=== PATIENT | male | born 1965 | race Caucasian/White ===

== ENCOUNTER 2022-08-17 17:11 | Emergency (ER) | payer OTHER ==
[2022-08-17 17:50] VITALS: BP 144/88; PULSE 97; RESP 18; TEMP 98.2; BMI 26.6
[2022-08-17] MEDS ORDERED: LIDOCAINE 5% TOPICAL PATCH TP ONE (18:36)
[2022-08-17] MEDS ORDERED: METHOCARBAMOL 500 MG TABLET PO ONE (18:36)
[2022-08-17] MEDS ORDERED: METHOCARBAMOL 500 MG TABLET ONE (19:36)
[2022-08-17] MEDS ORDERED: LIDOCAINE 5% TOPICAL PATCH ONE (19:36)
[2022-08-17] MEDS ORDERED: LIDOCAINE PATCH REMOVAL MC ONE (22:00)
== END 2022-08-17 21:26 | disposition home or self-care (01) ==
LOC: JERFT 17:11 → JER 17:11 → JERFT 21:26
DX: M54.50 Low back pain, unspecified (principal); M54.6 Pain in thoracic spine; W01.198A Fall on same level from slipping, tripping and stumbling with subsequent striking against other object, initial encounter
CPT/HCPCS: 72070-TC-FY; 72100-TC-FY; 99283-25

== ENCOUNTER 2022-08-28 20:07 | Inpatient (IN) | payer OTHER ==
[2022-08-28] MEDS ORDERED: KETOROLAC TROMETHAMINE 30 MG/1 ML VIAL IM ONE (22:09)
[2022-08-28] MEDS ORDERED: METHOCARBAMOL 500 MG TABLET PO ONE (22:09)
[2022-08-28] MEDS ORDERED: LIDOCAINE 5% TOPICAL PATCH TP ONE (22:09)
[2022-08-28] MEDS ORDERED: LIDOCAINE 5% TOPICAL PATCH ONE (22:16)
[2022-08-28] MEDS ORDERED: KETOROLAC TROMETHAMINE 30 MG/1 ML VIAL ONE (22:17)
[2022-08-28] MEDS ORDERED: METHOCARBAMOL 500 MG TABLET ONE (22:17)
[2022-08-28] MEDS ORDERED: traMADol HCL 50 MG TABLET PO ONE (22:27)
[2022-08-28] MEDS ORDERED: traMADol HCL 50 MG TABLET ONE (22:29)
[2022-08-28 22:47] LABS: URINE APPEARANCE CLEAR; URINE BILIRUBIN NEGATIVE (NEGATIVE); URINE COLOR YELLOW; URINE GLUCOSE (UA) 3+ (NEGATIVE); URINE KETONE NEGATIVE (NEGATIVE); URINE LEUK ESTERASE NEGATIVE (NEGATIVE); URINE NITRITE NEGATIVE (NEGATIVE); URINE PROTEIN TRACE (NEGATIVE)
[2022-08-28] MEDS ORDERED: SODIUM CHLORIDE 0.9% 1000 ML INFUS.BAG IV ONE (23:08)
[2022-08-28 23:30] LABS: BASO % 0.6 % (0-2.0); EOS % 2.2 % (0-4.5); HEMATOCRIT 33.1 % (35.4-49); HEMOGLOBIN 11.2 GM/dL (11.7-16.9); LYMPH % 31.4 % (8-40); MCH 32.7 pg (25.7-33.7); MCHC 33.8 g/dl (32.0-35.9); MEAN CELL VOLUME 96.7 fl (80-96); MEAN PLT VOLUME 7.9 fl (7.5-11.1); MONO % 8.8 % (3.8-10.2); PLATELET COUNT 304 10^3/uL (134-434); RBC 3.42 M/mm3 (4.00-5.60); RDW 11.8 % (11.9-15.9); WHITE BLOOD COUNT 6.3 K/mm3 (4.0-10.0)
[2022-08-28 23:42] LABS: POTASSIUM 4.3 mmol/L (3.5-5.1)
[2022-08-28 23:45] LABS: CALCIUM 8.8 mg/dL (8.5-10.1)
[2022-08-28 23:46] LABS: BLOOD UREA NITROGEN 24.6 mg/dL (7-18)
[2022-08-28 23:49] LABS: CREATININE 0.6 mg/dL (0.55-1.3)
[2022-08-28 23:50] LABS: BILIRUBIN,TOTAL 0.6 mg/dL (0.2-1); TOT PROT 7.1 g/dl (6.4-8.2)
[2022-08-29] MEDS ORDERED: KETOROLAC TROMETHAMINE 30 MG/1 ML VIAL IM PRN ×2 (02:55→03:17)
[2022-08-29] MEDS ORDERED: ACETAMINOPHEN 1000 MG/100 ML BAG IVPB PRN (02:55)
[2022-08-29] MEDS ORDERED: ACETAMINOPHEN 325 MG TABLET (FP) ONE (05:45)
[2022-08-29] MEDS: ACETAMINOPHEN 500 MG TABLET (FP) PO SCH ×3 (05:50→21:51)
[2022-08-29] MEDS: SODIUM CHLORIDE 1,000 ML IV SCH ×2 (05:50→19:06)
[2022-08-29] MEDS ORDERED: ACETAMINOPHEN 1000 MG/100 ML BAG IVPB SCH (06:00)
[2022-08-29] MEDS: LIDOCAINE PATCH REMOVAL MC SCH ×2 (07:19→21:52)
[2022-08-29] MEDS: INSULIN SLIDING SCALE (NOVOLOG) 1 VIAL SQ SCH ×4 (07:23→21:51)
[2022-08-29 08:18] LABS: HEMATOCRIT 33.7 % (35.4-49); HEMOGLOBIN 11.6 GM/dL (11.7-16.9); MCH 33.3 pg (25.7-33.7); MCHC 34.6 g/dl (32.0-35.9); MEAN CELL VOLUME 96.3 fl (80-96); MEAN PLT VOLUME 8.4 fl (7.5-11.1); PLATELET COUNT 291 10^3/uL (134-434); RBC 3.49 M/mm3 (4.00-5.60); RDW 11.7 % (11.9-15.9); WHITE BLOOD COUNT 5.9 K/mm3 (4.0-10.0)
[2022-08-29 08:48] LABS: ALBUMIN 2.9 g/dl (3.4-5.0)
[2022-08-29 08:49] LABS: CALCIUM 8.6 mg/dL (8.5-10.1)
[2022-08-29 08:50] LABS: BLOOD UREA NITROGEN 16.1 mg/dL (7-18)
[2022-08-29 08:51] LABS: PHOSPHOROUS 2.4 mg/dL (2.5-4.9)
[2022-08-29 08:52] LABS: CREATININE 0.4 mg/dL (0.55-1.3)
[2022-08-29 08:53] LABS: BILIRUBIN,TOTAL 0.4 mg/dL (0.2-1); TOT PROT 6.9 g/dl (6.4-8.2)
[2022-08-29] MEDS: ENOXAPARIN NA (PORCINE) 40 MG/0.4 ML DISP.SYRIN SQ SCH (09:16)
[2022-08-29] MEDS ORDERED: INSULIN (NOVOLOG) ASPART 100 UNITS/ML 10ML VIAL ONE ×2 (12:39→21:46)
[2022-08-29] MEDS ORDERED: DOCUSATE SODIUM 100 MG CAPSULE (FP) PO PRN (16:24)
[2022-08-29 19:45] VITALS: BMI 23.8
[2022-08-29] MEDS ORDERED: INSULIN (LEVEMIR) 100 UNITS/ML UNITS SQ SCH ×2 (22:00)
[2022-08-30] MEDS: SODIUM CHLORIDE 1,000 ML IV SCH ×2 (01:31→06:17)
[2022-08-30] MEDS: ACETAMINOPHEN 500 MG TABLET (FP) PO SCH (06:09)
[2022-08-30] MEDS: INSULIN SLIDING SCALE (NOVOLOG) 1 VIAL SQ SCH ×4 (06:17→21:55)
[2022-08-30] MEDS: INSULIN (LEVEMIR) 100 UNITS/ML UNITS SQ SCH (07:07)
[2022-08-30] MEDS: metFORMIN HCL 500 MG TABLET (FP) PO SCH ×2 (07:07→17:03)
[2022-08-30 08:09] LABS: BASO % 0.5 % (0-2.0); EOS % 1.6 % (0-4.5); HEMATOCRIT 34.7 % (35.4-49); HEMOGLOBIN 12.2 GM/dL (11.7-16.9); LYMPH % 24.3 % (8-40); MCH 33.6 pg (25.7-33.7); MCHC 35.2 g/dl (32.0-35.9); MEAN CELL VOLUME 95.6 fl (80-96); MEAN PLT VOLUME 7.9 fl (7.5-11.1); MONO % 8.9 % (3.8-10.2); NEUT % 64.7 % (42.8-82.8); PLATELET COUNT 336 10^3/uL (134-434); RBC 3.63 M/mm3 (4.00-5.60); RDW 11.6 % (11.9-15.9); WHITE BLOOD COUNT 6.8 K/mm3 (4.0-10.0)
[2022-08-30 08:20] LABS: POTASSIUM 4.2 mmol/L (3.5-5.1)
[2022-08-30 08:28] LABS: CALCIUM 8.5 mg/dL (8.5-10.1)
[2022-08-30 08:29] LABS: ALBUMIN 2.9 g/dl (3.4-5.0); BLOOD UREA NITROGEN 10.6 mg/dL (7-18); MAGNESIUM 2.2 mg/dL (1.8-2.4)
[2022-08-30 08:30] LABS: TOT PROT 7.2 g/dl (6.4-8.2)
[2022-08-30 08:32] LABS: CREATININE 0.5 mg/dL (0.55-1.3)
[2022-08-30 08:33] LABS: BILIRUBIN,TOTAL 0.4 mg/dL (0.2-1)
[2022-08-30] MEDS: ENOXAPARIN NA (PORCINE) 40 MG/0.4 ML DISP.SYRIN SQ SCH (09:21)
[2022-08-30] MEDS ORDERED: INSULIN (NOVOLOG) ASPART 100 UNITS/ML 10ML VIAL ONE (11:45)
[2022-08-30] MEDS: LIDOCAINE 5% TOPICAL PATCH TP SCH (13:01)
[2022-08-30] MEDS: KETOROLAC TROMETHAMINE 30 MG/1 ML VIAL IM PRN ×2 (14:51→21:54)
[2022-08-30 17:06] LABS: PH,URINE 7.5 (5.0-8.0); URINE APPEARANCE CLEAR; URINE BILIRUBIN NEGATIVE (NEGATIVE); URINE COLOR YELLOW; URINE GLUCOSE (UA) 2+ (NEGATIVE); URINE KETONE NEGATIVE (NEGATIVE); URINE LEUK ESTERASE NEGATIVE (NEGATIVE); URINE NITRITE NEGATIVE (NEGATIVE); URINE PROTEIN NEGATIVE (NEGATIVE)
[2022-08-30] MEDS ORDERED: INSULIN (LEVEMIR) 100 UNITS/ML UNITS SQ SCH (22:00)
[2022-08-30] MEDS: LIDOCAINE PATCH REMOVAL MC SCH ×2 (22:01→22:02)
[2022-08-31] MEDS: INSULIN (LEVEMIR) 100 UNITS/ML UNITS SQ SCH ×2 (06:41→09:49)
[2022-08-31] MEDS: INSULIN SLIDING SCALE (NOVOLOG) 1 VIAL SQ SCH ×4 (06:41→21:34)
[2022-08-31] MEDS: metFORMIN HCL 500 MG TABLET (FP) PO SCH ×4 (06:41→17:28)
[2022-08-31] MEDS: SODIUM CHLORIDE 1,000 ML IV SCH (07:23)
[2022-08-31 09:07] LABS: BASO % 0.5 % (0-2.0); EOS % 1.8 % (0-4.5); HEMATOCRIT 33.9 % (35.4-49); HEMOGLOBIN 11.7 GM/dL (11.7-16.9); LYMPH % 26.8 % (8-40); MCHC 34.5 g/dl (32.0-35.9); MEAN CELL VOLUME 95.6 fl (80-96); MEAN PLT VOLUME 8.2 fl (7.5-11.1); MONO % 7.9 % (3.8-10.2); PLATELET COUNT 320 10^3/uL (134-434); RBC 3.55 M/mm3 (4.00-5.60); RDW 11.8 % (11.9-15.9); WHITE BLOOD COUNT 5.4 K/mm3 (4.0-10.0)
[2022-08-31 09:17] LABS: POTASSIUM 4.3 mmol/L (3.5-5.1)
[2022-08-31 09:23] LABS: CALCIUM 8.7 mg/dL (8.5-10.1)
[2022-08-31 09:24] LABS: ALBUMIN 2.7 g/dl (3.4-5.0); BLOOD UREA NITROGEN 12.7 mg/dL (7-18); MAGNESIUM 2.3 mg/dL (1.8-2.4)
[2022-08-31 09:27] LABS: CREATININE 0.5 mg/dL (0.55-1.3)
[2022-08-31 09:28] LABS: BILIRUBIN,TOTAL 0.3 mg/dL (0.2-1); TOT PROT 6.9 g/dl (6.4-8.2)
[2022-08-31] MEDS: LIDOCAINE 5% TOPICAL PATCH TP SCH (09:48)
[2022-08-31] MEDS: TAMSULOSIN HCL 0.4 MG CAP PO SCH (09:48)
[2022-08-31] MEDS: ENOXAPARIN NA (PORCINE) 40 MG/0.4 ML DISP.SYRIN SQ SCH (09:51)
[2022-08-31] MEDS ORDERED: INSULIN (NOVOLOG) ASPART 100 UNITS/ML 10ML VIAL ONE (11:38)
[2022-08-31] MEDS: POLYETHYLENE GLYCOL (HEALTHYLAX) 3350 17 GM PACKET PO SCH (11:46)
[2022-08-31] MEDS ORDERED: KETOROLAC TROMETHAMINE 30 MG/1 ML VIAL IVPB PRN (14:40)
[2022-08-31] MEDS: LIDOCAINE PATCH REMOVAL MC SCH ×3 (21:35→21:38)
[2022-09-01] MEDS: AZITHROMYCIN IVPB 500 MG/250 ML BAG IVPB SCH (05:45)
[2022-09-01] MEDS: INSULIN SLIDING SCALE (NOVOLOG) 1 VIAL SQ SCH ×4 (06:08→21:26)
[2022-09-01] MEDS: metFORMIN HCL 500 MG TABLET (FP) PO SCH ×2 (06:08→16:41)
[2022-09-01] MEDS: INSULIN (LEVEMIR) 100 UNITS/ML UNITS SQ SCH (06:08)
[2022-09-01] MEDS: ENOXAPARIN NA (PORCINE) 40 MG/0.4 ML DISP.SYRIN SQ SCH (09:31)
[2022-09-01] MEDS: LIDOCAINE 5% TOPICAL PATCH TP SCH (09:31)
[2022-09-01] MEDS: TAMSULOSIN HCL 0.4 MG CAP PO SCH (09:31)
[2022-09-01 10:46] LABS: POTASSIUM 4.4 mmol/L (3.5-5.1)
[2022-09-01 10:48] LABS: CALCIUM 8.7 mg/dL (8.5-10.1)
[2022-09-01 10:49] LABS: ALBUMIN 2.8 g/dl (3.4-5.0); BLOOD UREA NITROGEN 12.4 mg/dL (7-18); MAGNESIUM 2.2 mg/dL (1.8-2.4)
[2022-09-01 10:52] LABS: CREATININE 0.5 mg/dL (0.55-1.3)
[2022-09-01 10:54] LABS: BILIRUBIN,TOTAL 0.3 mg/dL (0.2-1); TOT PROT 6.9 g/dl (6.4-8.2)
[2022-09-01 11:00] LABS: BASO % 0.6 % (0-2.0); EOS % 2.1 % (0-4.5); HEMATOCRIT 33.4 % (35.4-49); HEMOGLOBIN 11.5 GM/dL (11.7-16.9); LYMPH % 24.9 % (8-40); MCHC 34.4 g/dl (32.0-35.9); MEAN CELL VOLUME 95.8 fl (80-96); MEAN PLT VOLUME 8.4 fl (7.5-11.1); MONO % 7.8 % (3.8-10.2); NEUT % 64.6 % (42.8-82.8); PLATELET COUNT 333 10^3/uL (134-434); RBC 3.49 M/mm3 (4.00-5.60); RDW 11.9 % (11.9-15.9); WHITE BLOOD COUNT 5.9 K/mm3 (4.0-10.0)
[2022-09-01] MEDS: oxyCODONE HCL 5 MG TABLET PO PRN (13:54)
[2022-09-01] MEDS: POLYETHYLENE GLYCOL (HEALTHYLAX) 3350 17 GM PACKET PO SCH (14:09)
[2022-09-01] MEDS ORDERED: CEFTRIAXONE 1 GM in DEXTROSE 5%-WATER - 50 ML IVPB SCH (16:30)
[2022-09-01] MEDS ORDERED: AZITHROMYCIN IVPB 500 MG/250 ML BAG IVPB SCH (16:30)
[2022-09-01] MEDS: CEFTRIAXONE 1 GM in DEXTROSE 5%-WATER - 50 ML IVPB SCH (19:08)
[2022-09-01] MEDS: LIDOCAINE PATCH REMOVAL MC SCH ×2 (21:26)
[2022-09-02] MEDS: metFORMIN HCL 500 MG TABLET (FP) PO SCH ×2 (06:01→16:50)
[2022-09-02] MEDS: INSULIN (LEVEMIR) 100 UNITS/ML UNITS SQ SCH (06:01)
[2022-09-02] MEDS: INSULIN SLIDING SCALE (NOVOLOG) 1 VIAL SQ SCH ×4 (06:02→21:55)
[2022-09-02] MEDS: TAMSULOSIN HCL 0.4 MG CAP PO SCH ×2 (07:48→21:55)
[2022-09-02 08:15] LABS: BASO % 0.5 % (0-2.0); EOS % 2.2 % (0-4.5); HEMATOCRIT 33.3 % (35.4-49); HEMOGLOBIN 11.7 GM/dL (11.7-16.9); LYMPH % 34.1 % (8-40); MCH 33.4 pg (25.7-33.7); MCHC 35.2 g/dl (32.0-35.9); MEAN PLT VOLUME 8.2 fl (7.5-11.1); MONO % 9.5 % (3.8-10.2); NEUT % 53.7 % (42.8-82.8); PLATELET COUNT 335 10^3/uL (134-434); RBC 3.51 M/mm3 (4.00-5.60); RDW 11.6 % (11.9-15.9); WHITE BLOOD COUNT 5.8 K/mm3 (4.0-10.0)
[2022-09-02 08:29] LABS: POTASSIUM 4.6 mmol/L (3.5-5.1)
[2022-09-02 08:45] LABS: ALBUMIN 2.8 g/dl (3.4-5.0)
[2022-09-02 08:46] LABS: MAGNESIUM 2.1 mg/dL (1.8-2.4)
[2022-09-02 08:49] LABS: CREATININE 0.6 mg/dL (0.55-1.3)
[2022-09-02 08:50] LABS: BILIRUBIN,TOTAL 0.4 mg/dL (0.2-1); TOT PROT 7.4 g/dl (6.4-8.2)
[2022-09-02] MEDS: CEFTRIAXONE 1 GM in DEXTROSE 5%-WATER - 50 ML IVPB SCH (10:16)
[2022-09-02] MEDS: POLYETHYLENE GLYCOL (HEALTHYLAX) 3350 17 GM PACKET PO SCH (10:16)
[2022-09-02] MEDS: LIDOCAINE 5% TOPICAL PATCH TP SCH (10:16)
[2022-09-02] MEDS: ENOXAPARIN NA (PORCINE) 40 MG/0.4 ML DISP.SYRIN SQ SCH (10:16)
[2022-09-02] MEDS: AZITHROMYCIN IVPB 500 MG/250 ML BAG IVPB SCH (10:58)
[2022-09-02] MEDS ORDERED: INSULIN (NOVOLOG) ASPART 100 UNITS/ML 10ML VIAL ONE ×2 (11:27→16:52)
[2022-09-02 18:12] LABS: FREE KAPPA,SERUM 26.4 mg/L (3.3-19.4)
[2022-09-02] MEDS: oxyCODONE HCL 5 MG TABLET PO PRN (21:54)
[2022-09-02] MEDS: LIDOCAINE PATCH REMOVAL MC SCH ×2 (21:55)
[2022-09-03] MEDS: oxyCODONE HCL 5 MG TABLET PO PRN ×2 (06:14→17:16)
[2022-09-03] MEDS: INSULIN SLIDING SCALE (NOVOLOG) 1 VIAL SQ SCH ×4 (06:15→21:44)
[2022-09-03] MEDS: metFORMIN HCL 500 MG TABLET (FP) PO SCH ×2 (06:15→17:15)
[2022-09-03] MEDS: INSULIN (LEVEMIR) 100 UNITS/ML UNITS SQ SCH (06:15)
[2022-09-03] MEDS: CEFTRIAXONE 1 GM in DEXTROSE 5%-WATER - 50 ML IVPB SCH (10:00)
[2022-09-03] MEDS: TAMSULOSIN HCL 0.4 MG CAP PO SCH ×2 (10:00→21:41)
[2022-09-03] MEDS: LIDOCAINE 5% TOPICAL PATCH TP SCH ×2 (10:01→11:34)
[2022-09-03] MEDS: BICALUTAMIDE 50 MG TABLET (FP) PO SCH (10:01)
[2022-09-03] MEDS: POLYETHYLENE GLYCOL (HEALTHYLAX) 3350 17 GM PACKET PO SCH (10:01)
[2022-09-03] MEDS: AZITHROMYCIN IVPB 500 MG/250 ML BAG IVPB SCH (10:02)
[2022-09-03 11:27] LABS: INR 1.17 (0.83-1.09); PROTHROMBIN TIME (PATIENT) 13.5 SEC (9.7-13.0)
[2022-09-03] MEDS ORDERED: LIDOCAINE 5% TOPICAL PATCH TP SCH (11:30)
[2022-09-03] MEDS ORDERED: INSULIN (NOVOLOG) ASPART 100 UNITS/ML 10ML VIAL ONE (11:46)
[2022-09-03 15:07] LABS: IMMUNOGLOBULIN D < 1.30 mg/dL (<14.11)
[2022-09-03] MEDS: LIDOCAINE PATCH REMOVAL MC SCH ×2 (21:41)
[2022-09-04] MEDS: INSULIN SLIDING SCALE (NOVOLOG) 1 VIAL SQ SCH ×4 (06:05→21:26)
[2022-09-04] MEDS: metFORMIN HCL 500 MG TABLET (FP) PO SCH ×2 (06:09→16:44)
[2022-09-04] MEDS: oxyCODONE HCL 5 MG TABLET PO PRN (06:09)
[2022-09-04] MEDS: INSULIN (LEVEMIR) 100 UNITS/ML UNITS SQ SCH (06:10)
[2022-09-04 08:18] LABS: BASO % 0.7 % (0-2.0); EOS % 2.7 % (0-4.5); HEMATOCRIT 33.5 % (35.4-49); HEMOGLOBIN 11.7 GM/dL (11.7-16.9); LYMPH % 27.4 % (8-40); MCH 33.2 pg (25.7-33.7); MCHC 34.8 g/dl (32.0-35.9); MEAN CELL VOLUME 95.1 fl (80-96); MEAN PLT VOLUME 7.6 fl (7.5-11.1); MONO % 8.2 % (3.8-10.2); PLATELET COUNT 348 10^3/uL (134-434); RBC 3.52 M/mm3 (4.00-5.60); WHITE BLOOD COUNT 5.4 K/mm3 (4.0-10.0)
[2022-09-04 08:23] LABS: INR 1.1 (0.83-1.09); PROTHROMBIN TIME (PATIENT) 12.7 SEC (9.7-13.0)
[2022-09-04 08:28] LABS: POTASSIUM 4.3 mmol/L (3.5-5.1)
[2022-09-04 08:30] LABS: ALBUMIN 2.9 g/dl (3.4-5.0); BLOOD UREA NITROGEN 16.2 mg/dL (7-18); CALCIUM 8.7 mg/dL (8.5-10.1); MAGNESIUM 2.4 mg/dL (1.8-2.4)
[2022-09-04 08:33] LABS: CREATININE 0.5 mg/dL (0.55-1.3)
[2022-09-04 08:35] LABS: BILIRUBIN,TOTAL 0.2 mg/dL (0.2-1); TOT PROT 7.3 g/dl (6.4-8.2)
[2022-09-04] MEDS: POLYETHYLENE GLYCOL (HEALTHYLAX) 3350 17 GM PACKET PO SCH (09:20)
[2022-09-04] MEDS ORDERED: FENTANYL CITRATE/PF 50 MCG/ML VIAL ONE (09:25)
[2022-09-04] MEDS ORDERED: MIDAZOLAM HCL 2 MG/2 ML SINGLE DOSE VIAL ONE (09:25)
[2022-09-04] MEDS ORDERED: SODIUM CHLORIDE 500 ML IV SCH (09:40)
[2022-09-04] MEDS ORDERED: AZITHROMYCIN 500 MG TABLET PO SCH (10:00)
[2022-09-04] MEDS ORDERED: MIDAZOLAM HCL 2 MG/2 ML SINGLE DOSE VIAL IVPUSH ONE (10:10)
[2022-09-04] MEDS ORDERED: FENTANYL CITRATE/PF 50 MCG/ML VIAL IVPUSH ONE (10:10)
[2022-09-04] MEDS: CEFTRIAXONE 1 GM in DEXTROSE 5%-WATER - 50 ML IVPB SCH (11:47)
[2022-09-04] MEDS: TAMSULOSIN HCL 0.4 MG CAP PO SCH ×2 (12:01→21:25)
[2022-09-04] MEDS: LIDOCAINE 5% TOPICAL PATCH TP SCH ×2 (12:01→12:02)
[2022-09-04] MEDS: BICALUTAMIDE 50 MG TABLET (FP) PO SCH (12:01)
[2022-09-04] MEDS ORDERED: AMOX TR/POT CLAV 500MG/125MG TABLETS (FP) PO SCH ×2 (12:05→17:30)
[2022-09-04] MEDS ORDERED: AMOX TR/POT CLAV 500MG/125MG TABLETS (FP) PO ONE (12:22)
[2022-09-04] MEDS: AMOX TR/POT CLAV 500MG/125MG TABLETS (FP) PO SCH (16:45)
[2022-09-04] MEDS: LIDOCAINE PATCH REMOVAL MC SCH ×2 (21:27)
[2022-09-05] MEDS: INSULIN (LEVEMIR) 100 UNITS/ML UNITS SQ SCH (06:29)
[2022-09-05] MEDS: metFORMIN HCL 500 MG TABLET (FP) PO SCH ×2 (06:29→17:09)
[2022-09-05] MEDS: INSULIN SLIDING SCALE (NOVOLOG) 1 VIAL SQ SCH ×2 (06:31→11:44)
[2022-09-05 08:31] LABS: BASO % 0.4 % (0-2.0); EOS % 2.9 % (0-4.5); HEMATOCRIT 31.9 % (35.4-49); HEMOGLOBIN 11.3 GM/dL (11.7-16.9); LYMPH % 28.9 % (8-40); MCH 33.3 pg (25.7-33.7); MCHC 35.3 g/dl (32.0-35.9); MEAN CELL VOLUME 94.4 fl (80-96); MEAN PLT VOLUME 7.9 fl (7.5-11.1); MONO % 8.2 % (3.8-10.2); NEUT % 59.6 % (42.8-82.8); PLATELET COUNT 346 10^3/uL (134-434); RBC 3.38 M/mm3 (4.00-5.60); RDW 11.7 % (11.9-15.9)
[2022-09-05] MEDS: AMOX TR/POT CLAV 500MG/125MG TABLETS (FP) PO SCH ×2 (08:38→17:09)
[2022-09-05 08:39] LABS: INR 1.17 (0.83-1.09); PROTHROMBIN TIME (PATIENT) 13.5 SEC (9.7-13.0)
[2022-09-05] MEDS: TAMSULOSIN HCL 0.4 MG CAP PO SCH (08:40)
[2022-09-05 09:13] LABS: POTASSIUM 4.1 mmol/L (3.5-5.1)
[2022-09-05 09:29] LABS: ALBUMIN 2.7 g/dl (3.4-5.0)
[2022-09-05 09:30] LABS: BLOOD UREA NITROGEN 14.6 mg/dL (7-18); CALCIUM 8.6 mg/dL (8.5-10.1); MAGNESIUM 2.4 mg/dL (1.8-2.4)
[2022-09-05 09:32] LABS: CREATININE 0.5 mg/dL (0.55-1.3)
[2022-09-05 09:34] LABS: BILIRUBIN,TOTAL 0.3 mg/dL (0.2-1)
[2022-09-05] MEDS: oxyCODONE HCL 5 MG TABLET PO PRN (09:37)
[2022-09-05] MEDS: BICALUTAMIDE 50 MG TABLET (FP) PO SCH (09:39)
[2022-09-05] MEDS: LIDOCAINE 5% TOPICAL PATCH TP SCH ×2 (09:40→09:41)
[2022-09-05] MEDS: POLYETHYLENE GLYCOL (HEALTHYLAX) 3350 17 GM PACKET PO SCH (09:40)
[2022-09-05] MEDS: ENOXAPARIN NA (PORCINE) 40 MG/0.4 ML DISP.SYRIN SQ SCH (09:41)
[2022-09-05 14:50] VITALS: BP 102/64; PULSE 95; RESP 20; TEMP 98
== END 2022-09-05 17:52 | disposition home or self-care (01) | DRG 500 ==
LOC: JERFT 20:07 → INTOOBSV 08-29 01:52 → JERBED 08-29 01:52 → UNDOADMOB 08-29 01:52 → JERBED 08-29 05:59 → J8W 08-29 05:59 → OBSVTOIN 09-01 02:51 → J8W 09-01 02:51 → INTOOBSV 09-01 02:51 → JERBED 09-01 02:51 → UNDOADMOB 09-01 02:51 → OBSVTOIN 09-01 11:52 → JERBED 09-01 11:52 → J8W 09-01 11:52
PROVIDERS: ADMIT Internal Medicine; ATTEND Nurse Practitioner Acute Care
PROC: 0QB03ZX Excision of Lumbar Vertebra, Percutaneous Approach, Diagnostic (ICD-10-PCS; principal; 2022-09-04)
DX: C61 Malignant neoplasm of prostate (principal); J18.9 Pneumonia, unspecified organism; C79.51 Secondary malignant neoplasm of bone; E11.65 Type 2 diabetes mellitus with hyperglycemia; R74.8 Abnormal levels of other serum enzymes; K76.0 Fatty (change of) liver, not elsewhere classified; F17.210 Nicotine dependence, cigarettes, uncomplicated; M54.50 Low back pain, unspecified
CPT/HCPCS: 0241U-QW; 20220; 36415; 71250-TC; 72131-TC; 72149-TC; 74177-TC; 76705-TC; 78306-TC; 80053; 80061; 81003; 82010; 82378; 82550; 82784; 82785; 82962; 82977; 83036; 83615; 83735; 83883; 84080; 84100; 84153; 84439; 84443; 84550; 85025; 85027; 85610; 86301; 86704; 86709; 86803; 87086; 87340; 87517; 88307-TC; 88311-TC; 93005; 93010; 97116-GP; 97161-GP; 99285-25; A9503; A9579; Q9967

== ENCOUNTER 2022-09-28 04:45 | Day surgery (SDC) | payer OTHER ==
[2022-09-25 10:13] VITALS: BMI 25.4
[2022-09-28] MEDS ORDERED: MIDAZOLAM HCL 2 MG/2 ML SINGLE DOSE VIAL ONE (10:12)
[2022-09-28] MEDS ORDERED: FENTANYL CITRATE/PF 50 MCG/ML VIAL ONE (10:12)
[2022-09-28 11:29] VITALS: TEMP 98
[2022-09-28] MEDS ORDERED: FENTANYL CITRATE/PF 50 MCG/ML VIAL IVPUSH ONE (11:30)
[2022-09-28] MEDS ORDERED: MIDAZOLAM HCL 2 MG/2 ML SINGLE DOSE VIAL IVPUSH ONE (11:30)
[2022-09-28 11:57] VITALS: BP 130/70; PULSE 72; RESP 20
== END 2022-09-28 11:58 | disposition home or self-care (01) ==
LOC: JRADIR 04:45
PROVIDERS: ATTEND Specialist
PROC: 07DJ3ZX Extraction of Left Inguinal Lymphatic, Percutaneous Approach, Diagnostic (ICD-10-PCS; principal; 2022-09-28)
DX: R59.0 Localized enlarged lymph nodes (principal); Z53.8 Procedure and treatment not carried out for other reasons
CPT/HCPCS: 38505; 77012-TC; 82962

== ENCOUNTER 2022-10-14 13:27 | Day surgery (SDC) | payer OTHER ==
[~2022-10-14 13:27] MED LIST: LEUPROLIDE ACETATE (ELIGARD) 22.5 MG SYRINGE SQ ONE
[2022-10-14 15:05] LABS: BASO % 0.9 % (0-2.0); HEMATOCRIT 32.3 % (35.4-49); LYMPH % 51.7 % (8-40); MCH 32.1 pg (25.7-33.7); MEAN CELL VOLUME 94.4 fl (80-96); MEAN PLT VOLUME 7.3 fl (7.5-11.1); MONO % 9.3 % (3.8-10.2); NEUT % 34.1 % (42.8-82.8); PLATELET COUNT 207 10^3/uL (134-434); RBC 3.42 M/mm3 (4.00-5.60); RDW 13.4 % (11.9-15.9); WHITE BLOOD COUNT 4.1 K/mm3 (4.0-10.0)
[2022-10-14 15:25] LABS: POTASSIUM 4.1 mmol/L (3.5-5.1)
[2022-10-14 15:28] LABS: CALCIUM 8.7 mg/dL (8.5-10.1)
[2022-10-14 15:29] LABS: ALBUMIN 3.7 g/dl (3.4-5.0); BLOOD UREA NITROGEN 22.9 mg/dL (7-18)
[2022-10-14 15:31] LABS: BILIRUBIN,DIRECT 0.1 mg/dL (0.0-0.2)
[2022-10-14 15:32] LABS: CREATININE 0.5 mg/dL (0.55-1.3)
[2022-10-14 15:33] LABS: BILIRUBIN,TOTAL 0.4 mg/dL (0.2-1); TOT PROT 7.3 g/dl (6.4-8.2)
[2022-10-14 18:35] VITALS: BP 126/75; PULSE 70; RESP 20; TEMP 97.6
== END 2022-10-14 16:00 | disposition home or self-care (01) ==
LOC: J7W 13:27 → JONCCHEMO 13:27
PROVIDERS: ATTEND Specialist
PROC: 3E013GC Introduction of Other Therapeutic Substance into Subcutaneous Tissue, Percutaneous Approach (ICD-10-PCS; principal; 2022-10-14)
DX: C61 Malignant neoplasm of prostate (principal); Z76.89 Persons encountering health services in other specified circumstances
CPT/HCPCS: 36415; 80048; 80076; 84153; 85025; 96372; J9217

== ENCOUNTER 2023-01-06 13:18 | Day surgery (SDC) | payer OTHER ==
[2023-01-06 17:22] VITALS: BP 118/72; PULSE 75; RESP 18; TEMP 97.8
== END 2023-01-06 15:00 | disposition home or self-care (01) ==
LOC: JONCCHEMO 13:18 → J7W 13:19 → JONCCHEMO 15:00
PROVIDERS: ATTEND Specialist
DX: Z51.11 Encounter for antineoplastic chemotherapy (principal); C61 Malignant neoplasm of prostate
CPT/HCPCS: 96401; J9217

== ENCOUNTER 2023-01-25 04:55 | Day surgery (SDC) | payer OTHER ==
[2023-01-21 11:35] VITALS: BMI 27.3
[2023-01-25] MEDS ORDERED: ONDANSETRON 4 MG/2 ML VIAL IVPUSH PRN (08:51)
[2023-01-25] MEDS ORDERED: LACTATED RINGERS SOLUTION 1,000 ML IV SCH (09:00)
[2023-01-25] MEDS ORDERED: FENTANYL CITRATE/PF 50 MCG/ML VIAL ONE ×4 (09:11→10:54)
[2023-01-25] MEDS ORDERED: MIDAZOLAM HCL 2 MG/2 ML SINGLE DOSE VIAL ONE (09:11)
[2023-01-25] MEDS ORDERED: PROPOFOL 20 ML ONE (09:12)
[2023-01-25] MEDS ORDERED: ceFAZolin SODIUM 1 GM VIAL IVPB ONE (09:28)
[2023-01-25] MEDS ORDERED: ceFAZolin SODIUM 1 GM VIAL ONE (09:31)
[2023-01-25 12:02] VITALS: RESP 18; TEMP 97.7
[2023-01-25 14:33] VITALS: BP 140/84; PULSE 75
== END 2023-01-25 13:15 | disposition home or self-care (01) ==
LOC: JASU-SURG 04:55
PROVIDERS: ATTEND Urology
PROC: 0VT08ZZ Resection of Prostate, Via Natural or Artificial Opening Endoscopic (ICD-10-PCS; principal; 2023-01-25 08:30)
DX: N40.1 Benign prostatic hyperplasia with lower urinary tract symptoms (principal); C61 Malignant neoplasm of prostate; R33.8 Other retention of urine; C79.9 Secondary malignant neoplasm of unspecified site
CPT/HCPCS: 82962; 88307-TC; 88341-TC; 88342-TC; 94760

== ENCOUNTER 2023-03-13 00:32 | Emergency (ER) | payer OTHER ==
[2023-03-13 00:41] VITALS: BMI 25.3
[2023-03-13] MEDS ORDERED: morphine SO4 SUSTAINED ACTING 100 MG TABLET.SA PO ONE (04:00)
[2023-03-13] MEDS ORDERED: morphine SO4 SUSTAINED ACTING 15 MG TABLET.SA ONE (04:02)
[2023-03-13 05:15] VITALS: BP 152/87; TEMP 98.6
[2023-03-13 05:22] VITALS: PULSE 80; RESP 18
== END 2023-03-13 05:22 | disposition home or self-care (01) ==
LOC: JER 00:32
DX: C61 Malignant neoplasm of prostate (principal); M54.50 Low back pain, unspecified; R07.81 Pleurodynia
CPT/HCPCS: 99283-25

== ENCOUNTER 2023-04-21 13:11 | Day surgery (SDC) | payer OTHER ==
[2023-04-21 16:02] VITALS: BP 117/77; PULSE 99; RESP 18; TEMP 98.8
== END 2023-04-21 13:55 | disposition home or self-care (01) ==
LOC: J7W 13:11 → JONCCHEMO 13:11
PROVIDERS: ATTEND Internal Medicine Hematology & Oncology
PROC: 3E013GC Introduction of Other Therapeutic Substance into Subcutaneous Tissue, Percutaneous Approach (ICD-10-PCS; principal; 2023-04-21)
DX: C61 Malignant neoplasm of prostate (principal); Z76.89 Persons encountering health services in other specified circumstances
CPT/HCPCS: 96372; J9217

== ENCOUNTER 2023-05-14 03:44 | Day surgery (SDC) | payer OTHER ==
[2023-05-13 09:41] VITALS: BMI 25.0
[2023-05-14] MEDS ORDERED: LIDOCAINE HCL/PF 1% SDV 5ML VIAL ONE (07:13)
[2023-05-14 07:44] VITALS: RESP 20
[2023-05-14] MEDS: LIDOCAINE 1% P/F 10 MG/ML VIAL INF ONE ×2 (09:06)
[2023-05-14 10:04] VITALS: BP 130/65; PULSE 78; TEMP 97.2
[2023-05-14] MEDS ORDERED: ACETAMINOPHEN 500 MG TABLET (FP) PO PRN (15:14)
== END 2023-05-14 10:40 | disposition home or self-care (01) ==
LOC: JASU-SURG 03:44
PROVIDERS: ATTEND Pain Medicine Pain Medicine
PROC: BW4GZZZ Ultrasonography of Pelvic Region (ICD-10-PCS; 2023-05-14)
PROC: 01HY3MZ Insertion of Neurostimulator Lead into Peripheral Nerve, Percutaneous Approach (ICD-10-PCS; principal; 2023-05-14 09:30)
DX: G89.4 Chronic pain syndrome (principal)
CPT/HCPCS: 64555; C1778; 82962

== ENCOUNTER 2023-05-27 09:59 | Inpatient (IN) | payer OTHER ==
[2023-05-27 10:05] VITALS: BMI 24.7
[2023-05-27] MEDS: ACETAMINOPHEN 500 MG TABLET (FP) PO ONE (11:36)
[2023-05-27] MEDS ORDERED: ACETAMINOPHEN 325 MG TABLET (FP) ONE (11:39)
[2023-05-27 11:49] LABS: BASO % 0.4 % (0-2.0); EOS % 0.9 % (0-4.5); HEMATOCRIT 26.9 % (35.4-49); LYMPH % 24.2 % (8-40); MCH 30.5 pg (25.7-33.7); MCHC 33.5 g/dl (32.0-35.9); MEAN CELL VOLUME 91.2 fl (80-96); MEAN PLT VOLUME 6.8 fl (7.5-11.1); MONO % 11.6 % (3.8-10.2); NEUT % 62.9 % (42.8-82.8); PLATELET COUNT 307 10^3/uL (134-434); RBC 2.95 M/mm3 (4.00-5.60); RDW 16.2 % (11.9-15.9); WHITE BLOOD COUNT 3.1 K/mm3 (4.0-10.0)
[2023-05-27 12:13] LABS: POTASSIUM 3.8 mmol/L (3.5-5.1)
[2023-05-27 12:15] LABS: BLOOD UREA NITROGEN 17.6 mg/dL (7-18); CALCIUM 9.6 mg/dL (8.5-10.1); MAGNESIUM 2.5 mg/dL (1.8-2.4)
[2023-05-27 12:16] LABS: ALBUMIN 3.2 g/dl (3.4-5.0)
[2023-05-27 12:19] LABS: BILIRUBIN,TOTAL 0.3 mg/dL (0.2-1); CREATININE 0.5 mg/dL (0.55-1.3); TOT PROT 7.1 g/dl (6.4-8.2)
[2023-05-27] MEDS: INSULIN ASPART SLIDING SCALE (NOVOLOG) 1 VIAL SQ SCH (16:55)
[2023-05-27] MEDS: oxyCODONE HCL 5 MG TABLET PO PRN (18:56)
[2023-05-27] MEDS: LIDOCAINE 4% PATCH TP SCH (22:31)
[2023-05-27] MEDS: ACETAMINOPHEN 325 MG TABLET (FP) PO PRN (22:36)
[2023-05-28 08:26] LABS: HEMATOCRIT 27.3 % (35.4-49); HEMOGLOBIN 9.2 GM/dL (11.7-16.9); MEAN CELL VOLUME 90.9 fl (80-96); WHITE BLOOD COUNT 3.7 K/mm3 (4.0-10.0)
[2023-05-28 08:27] LABS: MCH 30.7 pg (25.7-33.7); MCHC 33.8 g/dl (32.0-35.9); MEAN PLT VOLUME 6.7 fl (7.5-11.1); PLATELET COUNT 304 10^3/uL (134-434); RDW 16.1 % (11.9-15.9)
[2023-05-28 08:44] LABS: CHLORIDE 103 mmol/L (98-107); POTASSIUM 3.9 mmol/L (3.5-5.1); SODIUM 137 mmol/L (136-145)
[2023-05-28 08:49] LABS: CALCIUM 8.9 mg/dL (8.5-10.1)
[2023-05-28 08:50] LABS: ANION GAP 9 mmol/L (4-13); CO2 26 mmol/L (21-32); MAGNESIUM 2.5 mg/dL (1.8-2.4)
[2023-05-28 08:52] LABS: CREATININE 0.4 mg/dL (0.55-1.3); GLUCOSE,RANDOM 123 mg/dL (74-106); SGOT/AST 15 U/L (15-37); SGPT/ALT 9 U/L (13-61)
[2023-05-28 08:54] LABS: BILIRUBIN,TOTAL 0.4 mg/dL (0.2-1); TOT PROT 6.7 g/dl (6.4-8.2)
[2023-05-28 08:55] LABS: PHOSPHOROUS 4.7 mg/dL (2.5-4.9)
[2023-05-28 08:56] LABS: ALK PHOS 464 U/L (45-117)
[2023-05-28] MEDS: ENOXAPARIN NA (PORCINE) 40 MG/0.4 ML DISP.SYRIN SQ SCH (09:08)
[2023-05-28] MEDS: LIDOCAINE PATCH REMOVAL MC SCH (09:10)
[2023-05-28] MEDS ORDERED: DOCUSATE SODIUM 100 MG CAPSULE (FP) PO PRN (11:08)
[2023-05-28] MEDS ORDERED: morphine SO4 SUSTAINED ACTING 30 MG TABLET.SA PO SCH ×2 (11:15→22:00)
[2023-05-28] MEDS ORDERED: NALOXONE (NYS OPIOID OVERDOSE PROGRAM) 4 MG/0.1 ML SPRAY NS PRN (13:57)
[2023-05-28 14:33] VITALS: RESP 18
[2023-05-28] MEDS ORDERED: NALOXONE HCL 0.4 MG/ML VIAL IVPUSH PRN (14:45)
[2023-05-28] MEDS: morphine SO4 SUSTAINED ACTING 30 MG TABLET.SA PO SCH (21:18)
[2023-05-28] MEDS: TAMSULOSIN HCL 0.4 MG CAP PO SCH (21:18)
[2023-05-29 09:17] LABS: BASO % 0.5 % (0-2.0); EOS % 1.1 % (0-4.5); HEMATOCRIT 27.6 % (35.4-49); HEMOGLOBIN 9.2 GM/dL (11.7-16.9); LYMPH % 20.2 % (8-40); MCH 30.3 pg (25.7-33.7); MCHC 33.2 g/dl (32.0-35.9); MEAN CELL VOLUME 91.3 fl (80-96); MEAN PLT VOLUME 6.9 fl (7.5-11.1); MONO % 9.5 % (3.8-10.2); NEUT % 68.7 % (42.8-82.8); PLATELET COUNT 317 10^3/uL (134-434); RBC 3.02 M/mm3 (4.00-5.60); RDW 15.7 % (11.9-15.9); WHITE BLOOD COUNT 3.9 K/mm3 (4.0-10.0)
[2023-05-29 09:37] LABS: POTASSIUM 3.9 mmol/L (3.5-5.1)
[2023-05-29 09:46] LABS: BLOOD UREA NITROGEN 14.8 mg/dL (7-18); CALCIUM 8.9 mg/dL (8.5-10.1); MAGNESIUM 2.2 mg/dL (1.8-2.4)
[2023-05-29 09:49] LABS: CREATININE 0.4 mg/dL (0.55-1.3)
[2023-05-29 09:50] LABS: BILIRUBIN,TOTAL 0.4 mg/dL (0.2-1); TOT PROT 6.6 g/dl (6.4-8.2)
[2023-05-30 08:47] LABS: BASO % 0.4 % (0-2.0); EOS % 1.4 % (0-4.5); HEMATOCRIT 28.5 % (35.4-49); HEMOGLOBIN 9.6 GM/dL (11.7-16.9); LYMPH % 28.2 % (8-40); MCH 30.4 pg (25.7-33.7); MCHC 33.6 g/dl (32.0-35.9); MEAN CELL VOLUME 90.7 fl (80-96); MONO % 10.2 % (3.8-10.2); NEUT % 59.8 % (42.8-82.8); PLATELET COUNT 338 10^3/uL (134-434); RBC 3.15 M/mm3 (4.00-5.60); RDW 16.1 % (11.9-15.9)
[2023-05-30 08:59] LABS: POTASSIUM 4.5 mmol/L (3.5-5.1)
[2023-05-30 09:07] LABS: CALCIUM 9.3 mg/dL (8.5-10.1)
[2023-05-30 09:10] LABS: CREATININE 0.4 mg/dL (0.55-1.3)
[2023-05-30 09:12] LABS: BILIRUBIN,TOTAL 0.3 mg/dL (0.2-1); TOT PROT 6.8 g/dl (6.4-8.2)
[2023-05-30] MEDS: ASPIRIN 81 MG CHEWABLE TABLETS PO SCH (11:21)
[2023-05-30 12:14] LABS: CHOLESTEROL 223 mg/dL (50-200); HDL CHOLESTEROL 40 mg/dL (40-60); LDL CHOLESTEROL (ONLY DFH) 154 mg/dl (5-100)
[2023-05-30] MEDS: PATIENT'S OWN MEDICATION (NON-FORMULARY) (Enzalutamide [Xtandi] 80 MG Tablet) PO SCH (15:46)
[2023-05-30] MEDS: ATORVASTATIN CA 40 MG TABLET (FP) PO SCH (21:24)
[2023-05-31 11:42] LABS: BASO % 0.5 % (0-2.0); EOS % 1.1 % (0-4.5); HEMATOCRIT 27.9 % (35.4-49); HEMOGLOBIN 9.3 GM/dL (11.7-16.9); LYMPH % 15.1 % (8-40); MCH 30.2 pg (25.7-33.7); MCHC 33.2 g/dl (32.0-35.9); MEAN CELL VOLUME 90.9 fl (80-96); MEAN PLT VOLUME 6.9 fl (7.5-11.1); MONO % 7.9 % (3.8-10.2); NEUT % 75.4 % (42.8-82.8); PLATELET COUNT 335 10^3/uL (134-434); RBC 3.07 M/mm3 (4.00-5.60); WHITE BLOOD COUNT 3.5 K/mm3 (4.0-10.0)
[2023-05-31 11:50] LABS: POTASSIUM 4.2 mmol/L (3.5-5.1)
[2023-05-31 11:53] LABS: BLOOD UREA NITROGEN 19.4 mg/dL (7-18); MAGNESIUM 2.2 mg/dL (1.8-2.4)
[2023-05-31 11:56] LABS: CREATININE 0.5 mg/dL (0.55-1.3); PHOSPHOROUS 4.5 mg/dL (2.5-4.9)
[2023-05-31 11:57] LABS: BILIRUBIN,TOTAL 0.3 mg/dL (0.2-1)
[2023-05-31 11:58] LABS: TOT PROT 6.8 g/dl (6.4-8.2)
[2023-05-31] MEDS: oxyCODONE HCL 5 MG TABLET PO PRN (16:55)
[2023-05-31] MEDS: INSULIN (LEVEMIR) 100 UNITS/ML UNITS SQ SCH (22:00)
[2023-06-01 10:02] LABS: BASO % 0.3 % (0-2.0); EOS % 1.3 % (0-4.5); HEMATOCRIT 29.1 % (35.4-49); HEMOGLOBIN 9.6 GM/dL (11.7-16.9); LYMPH % 26.5 % (8-40); MCH 30.2 pg (25.7-33.7); MEAN CELL VOLUME 91.4 fl (80-96); MONO % 8.8 % (3.8-10.2); NEUT % 63.1 % (42.8-82.8); PLATELET COUNT 359 10^3/uL (134-434); RBC 3.18 M/mm3 (4.00-5.60); WHITE BLOOD COUNT 5.1 K/mm3 (4.0-10.0)
[2023-06-01 10:21] LABS: POTASSIUM 4.2 mmol/L (3.5-5.1)
[2023-06-01 10:30] LABS: ALBUMIN 3.2 g/dl (3.4-5.0); BLOOD UREA NITROGEN 16.7 mg/dL (7-18); MAGNESIUM 2.1 mg/dL (1.8-2.4)
[2023-06-01 10:33] LABS: CREATININE 0.4 mg/dL (0.55-1.3); PHOSPHOROUS 4.6 mg/dL (2.5-4.9)
[2023-06-01 10:37] LABS: BILIRUBIN,TOTAL 0.4 mg/dL (0.2-1)
[2023-06-01 14:33] VITALS: BP 119/80; PULSE 102; TEMP 98.3
[2023-06-01] MEDS ORDERED: FENTANYL PATCH WASTE TD PRN (16:10)
[2023-06-01] MEDS: fentaNYL 25mcg/hr PATCH.TD72 TD SCH (16:43)
== END 2023-06-01 17:05 | disposition home or self-care (01) | DRG 48 ==
LOC: JER 09:59 → JERBED 14:08 → J6S 15:50 → OBSVTOIN 05-28 13:23
PROVIDERS: ADMIT Internal Medicine; ATTEND Internal Medicine
DX: H49.21 Sixth [abducent] nerve palsy, right eye (principal); C61 Malignant neoplasm of prostate; C79.51 Secondary malignant neoplasm of bone; E11.9 Type 2 diabetes mellitus without complications; E78.5 Hyperlipidemia, unspecified; H53.2 Diplopia; G83.4 Cauda equina syndrome; M54.15 Radiculopathy, thoracolumbar region; D63.0 Anemia in neoplastic disease; G89.3 Neoplasm related pain (acute) (chronic); D72.819 Decreased white blood cell count, unspecified
CPT/HCPCS: 36415; 70450-TC; 70553-TC; 71045-TC-FY; 73030-TC-LT-FY; 78306-TC; 80053; 80061; 80307; 82962; 83036; 83735; 84100; 85025; 85027; 93005; 93010; 99285-25; A9503; G0378

== ENCOUNTER 2023-06-22 22:49 | Inpatient (IN) | payer OTHER ==
[2023-06-23] MEDS ORDERED: ONDANSETRON 4 MG/2 ML VIAL ONE (00:51)
[2023-06-23] MEDS ORDERED: morphine SULFATE 4 MG/ML VIAL ONE (00:51)
[2023-06-23 00:56] LABS: BASO % 0.7 % (0-2.0); EOS % 0.7 % (0-4.5); HEMATOCRIT 24.1 % (35.4-49); HEMOGLOBIN 8.1 GM/dL (11.7-16.9); MCH 29.6 pg (25.7-33.7); MCHC 33.4 g/dl (32.0-35.9); MEAN CELL VOLUME 88.6 fl (80-96); MEAN PLT VOLUME 6.3 fl (7.5-11.1); MONO % 12.3 % (3.8-10.2); NEUT % 72.3 % (42.8-82.8); PLATELET COUNT 349 10^3/uL (134-434); RBC 2.72 M/mm3 (4.00-5.60); RDW 17.1 % (11.9-15.9); WHITE BLOOD COUNT 4.7 K/mm3 (4.0-10.0)
[2023-06-23 00:59] LABS: VENOUS BASE EXCESS 3.7 mmol/L (-2-2); VENOUS O2 SATURATION 84.1 % (70-80); VENOUS PCO2 40.6 mmHg (38-52); VENOUS PH 7.455 (7.310-7.410)
[2023-06-23] MEDS: ONDANSETRON 4 MG/2 ML VIAL IVPUSH ONE (01:01)
[2023-06-23] MEDS: morphine CARPU-JECT 4 MG/1 ML DISP.SYRIN IVPUSH ONE (01:01)
[2023-06-23 01:32] LABS: BLOOD UREA NITROGEN 10.6 mg/dL (7-18); CALCIUM 9.2 mg/dL (8.5-10.1); MAGNESIUM 2.3 mg/dL (1.8-2.4)
[2023-06-23 01:33] LABS: ALBUMIN 2.5 g/dl (3.4-5.0)
[2023-06-23 01:34] LABS: PH,URINE 7.5 (5.0-8.0); URINE APPEARANCE TURBID; URINE BILIRUBIN NEGATIVE (NEGATIVE); URINE COLOR YELLOW; URINE GLUCOSE (UA) 2+ (NEGATIVE); URINE KETONE NEGATIVE (NEGATIVE); URINE LEUK ESTERASE NEGATIVE (NEGATIVE); URINE NITRITE NEGATIVE (NEGATIVE); URINE PROTEIN NEGATIVE (NEGATIVE); URINE UROBILINOGEN 0.2 mg/dL (0.2-1.0)
[2023-06-23 01:35] LABS: CREATININE 0.4 mg/dL (0.55-1.3)
[2023-06-23 01:37] LABS: BILIRUBIN,TOTAL 0.4 mg/dL (0.2-1); TOT PROT 6.4 g/dl (6.4-8.2)
[2023-06-23] MEDS: INSULIN ASPART SLIDING SCALE (NOVOLOG) 1 VIAL SQ SCH (09:10)
[2023-06-23] MEDS ORDERED: oxyCODONE HCL 5 MG TABLET ONE (09:11)
[2023-06-23] MEDS: oxyCODONE HCL 5 MG TABLET PO PRN (09:12)
[2023-06-23] MEDS ORDERED: INSULIN (NOVOLOG) ASPART 100 UNITS/ML 10ML VIAL ONE (09:13)
[2023-06-23] MEDS ORDERED: FENTANYL PATCH WASTE TD PRN (10:40)
[2023-06-23] MEDS: LACTATED RINGERS SOLUTION 1,000 ML/1,000 ML INFUS.BAG IV SCH (11:00)
[2023-06-23] MEDS: POLYETHYLENE GLYCOL (HEALTHYLAX) 3350 17 GM PACKET PO SCH (11:00)
[2023-06-23] MEDS: GABAPENTIN 300 MG CAPSULE PO SCH (11:00)
[2023-06-23] MEDS: TAMSULOSIN HCL 0.4 MG CAP PO SCH (11:00)
[2023-06-23] MEDS: fentaNYL 25mcg/hr PATCH.TD72 TD SCH (11:01)
[2023-06-23 11:54] VITALS: BMI 24.9
[2023-06-23] MEDS ORDERED: morphine SULFATE IMMEDIATE RELEASE 30 MG TAB PO PRN (12:00)
[2023-06-23] MEDS: ACETAMINOPHEN 325 MG TABLET (FP) PO PRN (12:35)
[2023-06-23] MEDS: morphine SULFATE IMMEDIATE RELEASE 30 MG TAB PO SCH (13:20)
[2023-06-23] MEDS: DEXAMETHASONE SOD PHOSPHATE 10 MG/1 ML VIAL IVPUSH SCH (18:31)
[2023-06-23] MEDS: morphine SULFATE IMMEDIATE RELEASE 30 MG TAB PO PRN (18:32)
[2023-06-23] MEDS: SODIUM CHLORIDE 1,000 ML IV SCH (21:24)
[2023-06-23] MEDS: SENNOSIDES 8.6MG TABLET (FP) PO SCH (21:25)
[2023-06-24 08:51] LABS: HEMATOCRIT 23.5 % (35.4-49); HEMOGLOBIN 7.4 GM/dL (11.7-16.9); MCH 28.4 pg (25.7-33.7); MCHC 31.7 g/dl (32.0-35.9); MEAN CELL VOLUME 89.5 fl (80-96); MEAN PLT VOLUME 6.7 fl (7.5-11.1); PLATELET COUNT 360 10^3/uL (134-434); RBC 2.62 M/mm3 (4.00-5.60); RDW 16.3 % (11.9-15.9); WHITE BLOOD COUNT 4.3 K/mm3 (4.0-10.0)
[2023-06-24 09:02] LABS: INR 1.25 (0.83-1.09); PROTHROMBIN TIME (PATIENT) 14.5 SEC (9.7-13.0)
[2023-06-24 09:13] LABS: POTASSIUM 4.5 mmol/L (3.5-5.1)
[2023-06-24 09:17] LABS: ALBUMIN 2.3 g/dl (3.4-5.0); CALCIUM 8.6 mg/dL (8.5-10.1); MAGNESIUM 2.2 mg/dL (1.8-2.4)
[2023-06-24 09:20] LABS: CREATININE 0.4 mg/dL (0.55-1.3)
[2023-06-24 09:22] LABS: BILIRUBIN,TOTAL 0.3 mg/dL (0.2-1); TOT PROT 5.9 g/dl (6.4-8.2)
[2023-06-24] MEDS: PANTOPRAZOLE SODIUM 40 MG VIAL IVPUSH SCH (12:04)
[2023-06-24] MEDS: morphine SO4 SUSTAINED ACTING 15 MG TABLET.SA PO SCH (22:03)
[2023-06-24] MEDS: ATORVASTATIN CA 20 MG TABLET (FP) PO SCH (22:03)
[2023-06-25] MEDS: oxyCODONE HCL 5 MG TABLET PO PRN (06:37)
[2023-06-25] MEDS: ACETAMINOPHEN 325 MG TABLET (FP) PO PRN (06:38)
[2023-06-25] MEDS: morphine SULFATE 4 MG/ML VIAL IVPUSH PRN (08:47)
[2023-06-25 10:09] LABS: HEMATOCRIT 24.5 % (35.4-49); HEMOGLOBIN 8.1 GM/dL (11.7-16.9); MCH 29.1 pg (25.7-33.7); MCHC 32.9 g/dl (32.0-35.9); MEAN CELL VOLUME 88.5 fl (80-96); MEAN PLT VOLUME 6.9 fl (7.5-11.1); PLATELET COUNT 387 10^3/uL (134-434); RBC 2.77 M/mm3 (4.00-5.60); RDW 16.7 % (11.9-15.9); WHITE BLOOD COUNT 5.3 K/mm3 (4.0-10.0)
[2023-06-25 10:22] LABS: POTASSIUM 4.2 mmol/L (3.5-5.1)
[2023-06-25 10:25] LABS: CALCIUM 8.9 mg/dL (8.5-10.1)
[2023-06-25 10:26] LABS: ALBUMIN 2.3 g/dl (3.4-5.0); BLOOD UREA NITROGEN 10.6 mg/dL (7-18)
[2023-06-25 10:29] LABS: CREATININE 0.3 mg/dL (0.55-1.3)
[2023-06-25 10:30] LABS: BILIRUBIN,TOTAL 0.3 mg/dL (0.2-1)
[2023-06-25 10:31] LABS: TOT PROT 6.2 g/dl (6.4-8.2)
[2023-06-25] MEDS: MAGNESIUM HYDROX 2400MG/30ML ORAL SUSPENSION 30 ML CUP PO ONE (21:33)
[2023-06-26 09:42] LABS: HEMATOCRIT 26.6 % (35.4-49); HEMOGLOBIN 8.5 GM/dL (11.7-16.9); MCH 28.4 pg (25.7-33.7); MCHC 31.9 g/dl (32.0-35.9); MEAN CELL VOLUME 89.1 fl (80-96); MEAN PLT VOLUME 6.6 fl (7.5-11.1); PLATELET COUNT 426 10^3/uL (134-434); RBC 2.99 M/mm3 (4.00-5.60); RDW 16.6 % (11.9-15.9); WHITE BLOOD COUNT 6.6 K/mm3 (4.0-10.0)
[2023-06-26] MEDS: PANTOPRAZOLE 40 MG TABLET PO SCH (09:43)
[2023-06-26 09:44] LABS: POTASSIUM 4.1 mmol/L (3.5-5.1)
[2023-06-26 09:48] LABS: ALBUMIN 2.5 g/dl (3.4-5.0); BLOOD UREA NITROGEN 14.2 mg/dL (7-18); CALCIUM 8.9 mg/dL (8.5-10.1)
[2023-06-26 09:51] LABS: CREATININE 0.5 mg/dL (0.55-1.3)
[2023-06-26 09:52] LABS: BILIRUBIN,TOTAL 0.3 mg/dL (0.2-1); TOT PROT 6.4 g/dl (6.4-8.2)
[2023-06-26] MEDS: ONDANSETRON 4 MG/2 ML VIAL IVPUSH ONE (23:57)
[2023-06-28 09:47] LABS: INR 1.18 (0.83-1.09); PROTHROMBIN TIME (PATIENT) 13.7 SEC (9.7-13.0)
[2023-06-28 09:53] LABS: BASO % 0.1 % (0-2.0); EOS % 0.2 % (0-4.5); HEMATOCRIT 25.7 % (35.4-49); HEMOGLOBIN 8.5 GM/dL (11.7-16.9); LYMPH % 10.2 % (8-40); MCH 29.4 pg (25.7-33.7); MCHC 32.9 g/dl (32.0-35.9); MEAN CELL VOLUME 89.3 fl (80-96); MEAN PLT VOLUME 6.9 fl (7.5-11.1); MONO % 5.3 % (3.8-10.2); NEUT % 84.2 % (42.8-82.8); PLATELET COUNT 381 10^3/uL (134-434); RBC 2.88 M/mm3 (4.00-5.60); RDW 16.9 % (11.9-15.9); WHITE BLOOD COUNT 7.6 K/mm3 (4.0-10.0)
[2023-06-28 10:02] LABS: POTASSIUM 4.4 mmol/L (3.5-5.1)
[2023-06-28 10:13] LABS: ALBUMIN 2.6 g/dl (3.4-5.0)
[2023-06-28 10:14] LABS: BLOOD UREA NITROGEN 17.6 mg/dL (7-18); MAGNESIUM 2.1 mg/dL (1.8-2.4)
[2023-06-28 10:17] LABS: CREATININE 0.5 mg/dL (0.55-1.3); PHOSPHOROUS 3.9 mg/dL (2.5-4.9)
[2023-06-28 10:18] LABS: BILIRUBIN,TOTAL 0.4 mg/dL (0.2-1); TOT PROT 6.6 g/dl (6.4-8.2)
[2023-06-29] MEDS: GLYCERIN 1 RECTAL SUPPOSITORY, ADULT RC ONE (18:52)
[2023-06-30] MEDS: BISACODYL 10 MG SUPP.RECT PR PRN (16:50)
[2023-06-30 23:15] VITALS: BP 149/65; PULSE 86; RESP 17; TEMP 98.2
== END 2023-06-30 23:50 | disposition short-term general hospital (02) | DRG 40 ==
LOC: JER 22:49 → JERBED 06-23 08:41 → J5S 06-23 09:55
PROVIDERS: ADMIT Internal Medicine
DX: G95.29 Other cord compression (principal); C79.51 Secondary malignant neoplasm of bone; C61 Malignant neoplasm of prostate; E11.9 Type 2 diabetes mellitus without complications; R26.2 Difficulty in walking, not elsewhere classified; M25.551 Pain in right hip; E78.5 Hyperlipidemia, unspecified; M54.59 Other low back pain; K59.00 Constipation, unspecified; M84.459A Pathological fracture, hip, unspecified, initial encounter for fracture; R62.7 Adult failure to thrive; Z68.24 Body mass index [BMI] 24.0-24.9, adult
CPT/HCPCS: 36415; 70553-TC; 72132-TC; 72149-TC; 72156-TC; 72157-TC; 74177-TC; 80053; 81003; 82550; 82803; 82962; 82977; 83605; 83690; 83735; 84100; 84153; 85025; 85027; 85610; 86850; 86900; 86901; 87086; 87635; 93005; 93010; 99285-25; J1100

== ENCOUNTER 2023-08-07 12:19 | Inpatient (IN) | payer OTHER ==
[2023-08-07 13:23] LABS: BASO % 0.6 % (0-2.0); EOS % 1.1 % (0-4.5); HEMATOCRIT 27.1 % (35.4-49); LYMPH % 26.7 % (8-40); MCH 29.3 pg (25.7-33.7); MCHC 33.1 g/dl (32.0-35.9); MEAN CELL VOLUME 88.4 fl (80-96); MEAN PLT VOLUME 7.1 fl (7.5-11.1); MONO % 11.3 % (3.8-10.2); NEUT % 60.3 % (42.8-82.8); PLATELET COUNT 224 10^3/uL (134-434); RBC 3.07 M/mm3 (4.00-5.60); RDW 17.5 % (11.9-15.9); WHITE BLOOD COUNT 4.2 K/mm3 (4.0-10.0)
[2023-08-07 13:37] LABS: INR 1.2 (0.83-1.09); PROTHROMBIN TIME (PATIENT) 13.5 SEC (9.7-13.0)
[2023-08-07 13:40] LABS: ACTIVATED PTT 46.5 SECONDS (25.2-36.5)
[2023-08-07 13:45] LABS: POTASSIUM 4.1 mmol/L (3.5-5.1)
[2023-08-07 13:48] LABS: ALBUMIN 2.3 g/dl (3.4-5.0)
[2023-08-07 13:51] LABS: CREATININE 0.2 mg/dL (0.55-1.3)
[2023-08-07 13:53] LABS: BILIRUBIN,TOTAL 0.5 mg/dL (0.2-1); TOT PROT 6.3 g/dl (6.4-8.2)
[2023-08-07] MEDS ORDERED: ACETAMINOPHEN INJECTION 100 ML IVPB ONE (14:03)
[2023-08-07] MEDS: ACETAMINOPHEN 1000 MG/100 ML BAG IVPB ONE (14:07)
[2023-08-07 14:15] LABS: EPI CELLS 2 /uL (0-25.1); HYALINE CASTS 0 /uL (0-3.1); URINE APPEARANCE CLOUDY; URINE BACTERIA 1745 /uL (0-1359); URINE BILIRUBIN NEGATIVE (NEGATIVE); URINE COLOR YELLOW; URINE GLUCOSE (UA) NEGATIVE (NEGATIVE); URINE KETONE NEGATIVE (NEGATIVE); URINE LEUK ESTERASE NEGATIVE (NEGATIVE); URINE NITRITE NEGATIVE (NEGATIVE); URINE PROTEIN NEGATIVE (NEGATIVE); URINE RBC 80 /uL (0-23.9); URINE WBC 15 /uL (0-25.8)
[2023-08-07] MEDS ORDERED: oxyCODONE HCL 5 MG TABLET ONE (15:58)
[2023-08-07] MEDS: oxyCODONE HCL 5 MG TABLET PO ONE (16:01)
[2023-08-07] MEDS ORDERED: ATORVASTATIN CA 80 MG TABLET (FP) ONE (17:49)
[2023-08-07] MEDS ORDERED: FENTANYL CITRATE/PF 50 MCG/ML VIAL ONE (17:50)
[2023-08-07] MEDS ORDERED: ASPIRIN 325 MG TABLET ONE (17:50)
[2023-08-07] MEDS: ASPIRIN 81 MG CHEWABLE TABLETS PO ONE (17:56)
[2023-08-07] MEDS: ATORVASTATIN CA 80 MG TABLET (FP) PO ONE (17:56)
[2023-08-07] MEDS ORDERED: morphine SULFATE 4 MG/ML VIAL ONE (17:58)
[2023-08-07] MEDS: morphine CARPU-JECT 4 MG/1 ML DISP.SYRIN IVPUSH ONE (18:05)
[2023-08-07 19:19] VITALS: RESP 18
[2023-08-07 22:07] VITALS: BMI 20.2
[2023-08-07] MEDS: POLYETHYLENE GLYCOL (HEALTHYLAX) 3350 17 GM PACKET PO SCH (22:12)
[2023-08-08] MEDS: morphine SO4 SUSTAINED ACTING 15 MG TABLET.SA PO PRN (00:04)
[2023-08-08] MEDS: GABAPENTIN 300 MG CAPSULE PO SCH (00:04)
[2023-08-08 08:38] LABS: BASO % 0.4 % (0-2.0); EOS % 0.3 % (0-4.5); HEMATOCRIT 26.6 % (35.4-49); LYMPH % 23.4 % (8-40); MCH 29.9 pg (25.7-33.7); MEAN CELL VOLUME 87.9 fl (80-96); MEAN PLT VOLUME 6.8 fl (7.5-11.1); MONO % 9.6 % (3.8-10.2); NEUT % 66.3 % (42.8-82.8); PLATELET COUNT 213 10^3/uL (134-434); RBC 3.03 M/mm3 (4.00-5.60); RDW 17.8 % (11.9-15.9); WHITE BLOOD COUNT 4.9 K/mm3 (4.0-10.0)
[2023-08-08 08:59] LABS: CHLORIDE 101 mmol/L (98-107); POTASSIUM 3.9 mmol/L (3.5-5.1); SODIUM 133 mmol/L (136-145)
[2023-08-08 09:04] LABS: ANION GAP 6 mmol/L (4-13); CALCIUM 8.6 mg/dL (8.5-10.1); CO2 26 mmol/L (21-32); GLUCOSE,RANDOM 127 mg/dL (74-106)
[2023-08-08 09:05] LABS: BLOOD UREA NITROGEN 15.4 mg/dL (7-18)
[2023-08-08 09:08] LABS: CREATININE < 0.2 mg/dL (0.55-1.3)
[2023-08-08] MEDS: ENOXAPARIN NA (PORCINE) 40 MG/0.4 ML DISP.SYRIN SQ SCH (10:12)
[2023-08-08] MEDS: TAMSULOSIN HCL 0.4 MG CAP PO SCH (10:13)
[2023-08-08] MEDS: SODIUM CHLORIDE 0.45%/POT 20 MEQ/1,000 ML INFUS.BAG IV SCH (15:36)
[2023-08-08] MEDS: ATORVASTATIN CA 20 MG TABLET (FP) PO SCH (21:47)
[2023-08-08] MEDS: SENNOSIDES 8.6MG TABLET (FP) PO SCH (21:47)
[2023-08-08] MEDS: ASPIRIN 81 MG CHEWABLE TABLETS PO ONE (23:34)
[2023-08-09] MEDS ORDERED: morphine SO4 SUSTAINED ACTING 15 MG TABLET.SA PO PRN (10:28)
[2023-08-09 10:50] LABS: GAMMA GLUTAMYL TRANSPEPTIDASE 44 U/L (5-85)
[2023-08-09 10:53] LABS: IRON SERUM 42 ug/dL (50-175)
[2023-08-09] MEDS: POLYETHYLENE GLYCOL (HEALTHYLAX) 3350 17 GM PACKET PO SCH (12:08)
[2023-08-09] MEDS: ACETAMINOPHEN 325 MG TABLET (FP) PO PRN (20:09)
[2023-08-09] MEDS: oxyCODONE HCL 5 MG TABLET PO PRN (20:11)
[2023-08-09 23:36] VITALS: BP 113/68; PULSE 103
[2023-08-09 23:53] VITALS: TEMP 99.1
== END 2023-08-09 23:50 | disposition short-term general hospital (02) | DRG 47 ==
LOC: JER 12:19 → JERBED 17:47 → J5S 19:49
PROVIDERS: ADMIT Internal Medicine; ATTEND Family Medicine
DX: G45.9 Transient cerebral ischemic attack, unspecified (principal); K59.00 Constipation, unspecified; E78.00 Pure hypercholesterolemia, unspecified; E11.9 Type 2 diabetes mellitus without complications; C61 Malignant neoplasm of prostate; C79.51 Secondary malignant neoplasm of bone; K62.89 Other specified diseases of anus and rectum; G82.20 Paraplegia, unspecified; H49.21 Sixth [abducent] nerve palsy, right eye; E78.5 Hyperlipidemia, unspecified; J90 Pleural effusion, not elsewhere classified; I10 Essential (primary) hypertension; R74.8 Abnormal levels of other serum enzymes; M54.59 Other low back pain; R62.7 Adult failure to thrive; M89.9 Disorder of bone, unspecified; Z74.01 Bed confinement status; Z68.20 Body mass index [BMI] 20.0-20.9, adult
CPT/HCPCS: 0241U-QW; 36415; 70450-TC; 70496-TC; 70498-TC; 70551-TC; 74018-TC-FY; 74177-TC; 74178-TC; 80048; 80053; 80061; 81003; 82550; 82728; 82977; 83036; 83540; 84484; 85025; 85610; 85730; 86850; 86900; 86901; 87086; 87186; 93005; 93010; 99285-25; J0131; J3480; Q9967

== ENCOUNTER 2023-09-01 17:53 | Observation (INO) | payer OTHER ==
[2023-09-01 19:32] LABS: HEMATOCRIT 18.8 % (35.4-49); MCH 31.4 pg (25.7-33.7); MCHC 32.9 g/dl (32.0-35.9); MEAN CELL VOLUME 95.5 fl (80-96); MEAN PLT VOLUME 7.4 fl (7.5-11.1); PLATELET COUNT 232 10^3/uL (134-434); RBC 1.97 M/mm3 (4.00-5.60); WHITE BLOOD COUNT 6.1 K/mm3 (4.0-10.0)
[2023-09-01 19:39] LABS: ADD RBC MORPHOLOGY YES
[2023-09-01 19:40] LABS: INR 1.28 (0.83-1.09); PROTHROMBIN TIME (PATIENT) 14.6 SEC (9.7-13.0)
[2023-09-01 19:42] LABS: ACTIVATED PTT 57.3 SECONDS (25.2-36.5)
[2023-09-01 19:44] LABS: HEMOGLOBIN 6.2 GM/dL (11.7-16.9)
[2023-09-01 19:51] LABS: CHLORIDE 101 mmol/L (98-107); POTASSIUM 3.6 mmol/L (3.5-5.1); SODIUM 133 mmol/L (136-145)
[2023-09-01 19:53] LABS: ALBUMIN 1.7 g/dl (3.4-5.0); ANION GAP 1 mmol/L (4-13); CALCIUM 8.8 mg/dL (8.5-10.1); CO2 30 mmol/L (21-32); GLUCOSE,RANDOM 107 mg/dL (74-106)
[2023-09-01 19:56] LABS: SGOT/AST 73 U/L (15-37)
[2023-09-01 19:57] LABS: BILIRUBIN,TOTAL 0.5 mg/dL (0.2-1); SGPT/ALT 8 U/L (13-61)
[2023-09-01 20:06] LABS: ANISOCYTOSIS 0; MACROCYTOSIS 0
[2023-09-01 20:24] LABS: ALK PHOS 918 U/L (45-117); CREATININE < 0.1 mg/dL (0.55-1.3)
[2023-09-02] MEDS ORDERED: ACETAMINOPHEN 325 MG TABLET (FP) PO PRN (00:15)
[2023-09-02 07:25] LABS: HEMATOCRIT 27.6 % (35.4-49); HEMOGLOBIN 9.4 GM/dL (11.7-16.9); MCH 31.7 pg (25.7-33.7); MCHC 33.9 g/dl (32.0-35.9); MEAN CELL VOLUME 93.6 fl (80-96); MEAN PLT VOLUME 7.7 fl (7.5-11.1); PLATELET COUNT 212 10^3/uL (134-434); RBC 2.95 M/mm3 (4.00-5.60); RDW 18.9 % (11.9-15.9); WHITE BLOOD COUNT 6.5 K/mm3 (4.0-10.0)
[2023-09-02 07:44] LABS: CHLORIDE 100 mmol/L (98-107); POTASSIUM 3.8 mmol/L (3.5-5.1); SODIUM 134 mmol/L (136-145)
[2023-09-02 07:50] LABS: CALCIUM 8.8 mg/dL (8.5-10.1); GLUCOSE,RANDOM 97 mg/dL (74-106)
[2023-09-02 07:51] LABS: ALBUMIN 1.8 g/dl (3.4-5.0); ANION GAP 5 mmol/L (4-13); CO2 29 mmol/L (21-32); MAGNESIUM 2.1 mg/dL (1.8-2.4)
[2023-09-02 07:53] LABS: SGOT/AST 76 U/L (15-37); SGPT/ALT 10 U/L (13-61)
[2023-09-02 07:54] LABS: BILIRUBIN,TOTAL 1.2 mg/dL (0.2-1); CREATININE < 0.2 mg/dL (0.55-1.3); TOT PROT 5.2 g/dl (6.4-8.2)
[2023-09-02] MEDS: GABAPENTIN 300 MG CAPSULE PO SCH (08:00)
[2023-09-02 08:17] LABS: ALK PHOS 936 U/L (45-117)
[2023-09-02] MEDS ORDERED: TAMSULOSIN HCL 0.4 MG CAP PO SCH (08:30)
[2023-09-02] MEDS: TAMSULOSIN HCL 0.4 MG CAP PO SCH (08:40)
[2023-09-02] MEDS: morphine SO4 SUSTAINED ACTING 15 MG TABLET.SA PO SCH (08:40)
[2023-09-02] MEDS ORDERED: oxyCODONE HCL 5 MG TABLET PO PRN (09:04)
[2023-09-02] MEDS ORDERED: ACETAMINOPHEN 1000 MG/100 ML BAG IVPB PRN (09:05)
[2023-09-02] MEDS: FAMOTIDINE 20 MG TABLET PO SCH (09:14)
[2023-09-02] MEDS: predniSONE 5 MG TABLET (UD) PO SCH (09:14)
[2023-09-02] MEDS: PREGABALIN 100 MG CAPSULE PO SCH (09:14)
[2023-09-02] MEDS: POLYETHYLENE GLYCOL (HEALTHYLAX) 3350 17 GM PACKET PO SCH (09:15)
[2023-09-02 09:17] LABS: ANISOCYTOSIS 1+; MACROCYTOSIS 1+
[2023-09-02 09:35] LABS: RETICULOCYTES 4.59 % (0.5-1.5)
[2023-09-02 09:41] LABS: IRON SERUM 60 ug/dL (50-175); TOTAL IRON BINDING CAPACITY 109 ug/dL (250-450)
[2023-09-02 10:00] VITALS: RESP 18; BMI 22.3
[2023-09-02] MEDS: INSULIN ASPART SLIDING SCALE (NOVOLOG) 1 VIAL SQ SCH (10:59)
[2023-09-02 16:07] VITALS: BP 111/75; PULSE 115; TEMP 98.8
[2023-09-02] MEDS ORDERED: SENNOSIDES 8.6MG TABLET (FP) PO SCH (22:00)
[2023-09-02] MEDS ORDERED: MIRTAZAPINE 15 MG TABLET (FP) PO SCH (22:00)
[2023-09-02] MEDS ORDERED: ATORVASTATIN CA 20 MG TABLET (FP) PO SCH (22:00)
== END 2023-09-02 18:45 ==
LOC: JER 17:53 → JERBED 20:56 → J7W 09-02 06:29
PROVIDERS: ADMIT Internal Medicine; ATTEND Family Medicine
PROC: 30233N1 Transfusion of Nonautologous Red Blood Cells into Peripheral Vein, Percutaneous Approach (ICD-10-PCS; principal; 2023-09-01)
DX: D63.0 Anemia in neoplastic disease (principal); E11.9 Type 2 diabetes mellitus without complications; Z85.46 Personal history of malignant neoplasm of prostate; Z79.84 Long term (current) use of oral hypoglycemic drugs; Z92.3 Personal history of irradiation
CPT/HCPCS: 36415; 36430; 71045-TC-FY; 80053; 82272; 82728; 82962; 83540; 83550; 83735; 84100; 84484; 85025; 85045; 85610; 85730; 86850; 86900; 86901; 86922; 93005; 93010; 99285-25; G0378; P9058

== ENCOUNTER 2023-10-12 13:57 | Observation (INO) | payer OTHER ==
[2023-10-12 14:58] VITALS: BMI 22.3
[2023-10-12 16:23] LABS: VENOUS BASE EXCESS 6.8 mmol/L (-2-2); VENOUS O2 SATURATION 65.6 % (70-80); VENOUS PCO2 39.8 mmHg (38-52); VENOUS PH 7.503 (7.310-7.410)
[2023-10-12 16:33] LABS: BASO % 0.2 % (0-2.0); EOS % 0.4 % (0-4.5); HEMATOCRIT 15.4 % (35.4-49); LYMPH % 23.4 % (8-40); MCH 32.9 pg (25.7-33.7); MCHC 31.9 g/dl (32.0-35.9); MEAN CELL VOLUME 103.2 fl (80-96); MEAN PLT VOLUME 8.9 fl (7.5-11.1); MONO % 3.9 % (3.8-10.2); NEUT % 72.1 % (42.8-82.8); PLATELET COUNT 63 10^3/uL (134-434); WHITE BLOOD COUNT 7.5 K/mm3 (4.0-10.0)
[2023-10-12 16:38] LABS: HEMOGLOBIN 4.9 GM/dL (11.7-16.9)
[2023-10-12 16:39] LABS: INR 1.14 (0.83-1.09); PROTHROMBIN TIME (PATIENT) 13.1 SEC (9.7-13.0)
[2023-10-12] MEDS ORDERED: ACETAMINOPHEN INJECTION 100 ML IVPB ONE (16:42)
[2023-10-12] MEDS: SODIUM CHLORIDE 0.9% 500 ML INFUS.BAG IV ONE (16:49)
[2023-10-12] MEDS: ACETAMINOPHEN 1000 MG/100 ML BAG IVPB ONE (16:49)
[2023-10-12 16:55] LABS: POTASSIUM 3.2 mmol/L (3.5-5.1)
[2023-10-12 16:56] LABS: CALCIUM 11.3 mg/dL (8.5-10.1)
[2023-10-12 16:57] LABS: ALBUMIN 1.8 g/dl (3.4-5.0); BLOOD UREA NITROGEN 19.3 mg/dL (7-18)
[2023-10-12 17:01] LABS: BILIRUBIN,TOTAL 1.2 mg/dL (0.2-1); CREATININE 0.3 mg/dL (0.55-1.3)
[2023-10-12 17:30] LABS: EPI CELLS 36 /uL (0-25.1); HYALINE CASTS 11 /uL (0-3.1); PH,URINE 5.5 (5.0-8.0); URINE APPEARANCE CLOUDY; URINE BACTERIA 22 /uL (0-1359); URINE BILIRUBIN NEGATIVE (NEGATIVE); URINE COLOR DK YELLOW; URINE GLUCOSE (UA) NEGATIVE (NEGATIVE); URINE KETONE NEGATIVE (NEGATIVE); URINE LEUK ESTERASE 1+ (NEGATIVE); URINE NITRITE NEGATIVE (NEGATIVE); URINE PROTEIN 1+ (NEGATIVE); URINE WBC 190 /uL (0-25.8)
[2023-10-12 17:51] LABS: ANISOCYTOSIS 1+; MACROCYTOSIS 0; PLATELET ESTIMATE DECREASED
[2023-10-12] MEDS ORDERED: POTASSIUM CHLORIDE ORAL LIQUID 20 MEQ/15 ML ONE (20:15)
[2023-10-12] MEDS ORDERED: CEFTRIAXONE 1 GM/50 ML BAG ONE (20:16)
[2023-10-12] MEDS: POTASSIUM CHLORIDE ORAL LIQUID 20 MEQ/15 ML PO ONE (20:27)
[2023-10-12] MEDS: CEFTRIAXONE 1,000 MG in DEXTROSE 5%-WATER - 50 ML IVPB ONE (20:27)
[2023-10-12 22:33] LABS: URINE RBC FEW /uL (0-23.9)
[2023-10-12] MEDS: INSULIN ASPART SLIDING SCALE (NOVOLOG) 1 VIAL SQ SCH (22:43)
[2023-10-13 06:38] LABS: HEMATOCRIT 24.7 % (35.4-49); HEMOGLOBIN 8.4 GM/dL (11.7-16.9); MCH 29.9 pg (25.7-33.7); MCHC 33.9 g/dl (32.0-35.9); PLATELET COUNT 50 10^3/uL (134-434); RDW 24.2 % (11.9-15.9); WHITE BLOOD COUNT 8.1 K/mm3 (4.0-10.0)
[2023-10-13 07:00] LABS: CALCIUM 11.6 mg/dL (8.5-10.1); POTASSIUM 3.6 mmol/L (3.5-5.1)
[2023-10-13 07:01] LABS: BLOOD UREA NITROGEN 18.8 mg/dL (7-18); MAGNESIUM 1.8 mg/dL (1.8-2.4)
[2023-10-13 07:05] LABS: CREATININE 0.2 mg/dL (0.55-1.3); MEAN CELL VOLUME 88.2 fl (80-96); PHOSPHOROUS 2.7 mg/dL (2.5-4.9)
[2023-10-13 09:27] LABS: ANISOCYTOSIS 1+; CORRECTED WBC 7.23 K/mm3; MACROCYTOSIS 0
[2023-10-13 09:38] VITALS: RESP 20
[2023-10-13 14:18] VITALS: BP 127/87; PULSE 109; TEMP 98.7
== END 2023-10-13 14:20 ==
LOC: JER 13:57 → JERBED 21:56
PROVIDERS: ADMIT Internal Medicine; ATTEND Family Medicine
PROC: 30233N1 Transfusion of Nonautologous Red Blood Cells into Peripheral Vein, Percutaneous Approach (ICD-10-PCS; principal; 2023-10-12)
PROC: 3E0337Z Introduction of Electrolytic and Water Balance Substance into Peripheral Vein, Percutaneous Approach (ICD-10-PCS; 2023-10-12)
PROC: 3E03329 Introduction of Other Anti-infective into Peripheral Vein, Percutaneous Approach (ICD-10-PCS; 2023-10-12)
PROC: 3E033NZ Introduction of Analgesics, Hypnotics, Sedatives into Peripheral Vein, Percutaneous Approach (ICD-10-PCS; 2023-10-12)
DX: D50.9 Iron deficiency anemia, unspecified (principal); I48.91 Unspecified atrial fibrillation; E11.9 Type 2 diabetes mellitus without complications; E78.5 Hyperlipidemia, unspecified; C79.89 Secondary malignant neoplasm of other specified sites; N13.9 Obstructive and reflux uropathy, unspecified; K59.00 Constipation, unspecified; Z88.8 Allergy status to other drugs, medicaments and biological substances
CPT/HCPCS: 0241U-QW; 36415; 36430; 70450-TC; 71045-TC-FY; 80048; 80053; 81003; 82803; 82962; 83605; 83735; 84100; 84484; 85025; 85610; 85730; 86850; 86900; 86901; 86922; 87040; 87086; 93005; 93010; 96365; 96375; 99285-25; E0186; G0378; J0131; P9058

== ENCOUNTER 2023-10-15 16:30 | Inpatient (IN) | payer OTHER ==
[2023-10-15] MEDS ORDERED: ACETAMINOPHEN INJECTION 100 ML IVPB ONE (16:58)
[2023-10-15] MEDS: ACETAMINOPHEN 1000 MG/100 ML BAG IVPB ONE (17:00)
[2023-10-15] MEDS: SODIUM CHLORIDE 0.9% 500 ML INFUS.BAG IV ONE (17:00)
[2023-10-15 17:18] LABS: BASO % 0.5 % (0-2.0); EOS % 0.4 % (0-4.5); HEMATOCRIT 24.8 % (35.4-49); HEMOGLOBIN 7.9 GM/dL (11.7-16.9); LYMPH % 29.5 % (8-40); MCH 28.8 pg (25.7-33.7); MCHC 31.9 g/dl (32.0-35.9); MEAN CELL VOLUME 90.2 fl (80-96); MEAN PLT VOLUME 8.4 fl (7.5-11.1); MONO % 2.7 % (3.8-10.2); NEUT % 66.9 % (42.8-82.8); PLATELET COUNT 48 10^3/uL (134-434); RBC 2.75 M/mm3 (4.00-5.60); WHITE BLOOD COUNT 5.4 K/mm3 (4.0-10.0)
[2023-10-15 17:24] LABS: VENOUS BASE EXCESS 4.4 mmol/L (-2-2); VENOUS O2 SATURATION 96.4 % (70-80); VENOUS PCO2 46.8 mmHg (38-52); VENOUS PH 7.417 (7.310-7.410)
[2023-10-15] MEDS: LACTATED RINGERS SOLUTION 1000 ML INFUS.BAG IV ONE (17:26)
[2023-10-15] MEDS ORDERED: VANCOMYCIN/WATER 1250 MG 1,250 MG/250 ML BAG IVPB ONE (17:27)
[2023-10-15 17:28] LABS: INR 1.15 (0.83-1.09); PROTHROMBIN TIME (PATIENT) 13.2 SEC (9.7-13.0)
[2023-10-15] MEDS ORDERED: PIPERACILLIN/TAZOB 4.5 GM 4.5 GM/100 ML BAG IVPB ONE (17:28)
[2023-10-15 17:31] LABS: ACTIVATED PTT 33.2 SECONDS (25.2-36.5)
[2023-10-15 17:39] LABS: CHLORIDE 107 mmol/L (98-107); SODIUM 144 mmol/L (136-145)
[2023-10-15 17:41] LABS: ALBUMIN 1.6 g/dl (3.4-5.0); BLOOD UREA NITROGEN 18.9 mg/dL (7-18); CALCIUM 13.4 mg/dL (8.5-10.1); CO2 31 mmol/L (21-32); GLUCOSE,RANDOM 116 mg/dL (74-106)
[2023-10-15] MEDS: VANCOMYCIN 1,250 MG in DEXTROSE 5%-WATER - 500 ML IVPB ONE (17:42)
[2023-10-15] MEDS: PIPERACILLIN/TAZOBACTAM 4.5 GM VIAL IVPB ONE (17:42)
[2023-10-15 17:44] LABS: CREATININE 0.3 mg/dL (0.55-1.3); SGPT/ALT 18 U/L (13-61)
[2023-10-15 17:45] LABS: SGOT/AST 59 U/L (15-37)
[2023-10-15 17:46] LABS: BILIRUBIN,TOTAL 1.5 mg/dL (0.2-1); TOT PROT 4.8 g/dl (6.4-8.2)
[2023-10-15 17:47] LABS: ANION GAP 6 mmol/L (4-13); POTASSIUM 2.9 mmol/L (3.5-5.1)
[2023-10-15 18:06] LABS: ANISOCYTOSIS 3+; MACROCYTOSIS 0; TARGET CELLS 1+
[2023-10-15 18:07] LABS: ALK PHOS 1505 U/L (45-117)
[2023-10-15] MEDS ORDERED: KCL 10 MEQ IVPB 30 MEQ/300 ML INFUS.BAG IVPB ONE (19:28)
[2023-10-15 19:32] VITALS: BMI 22.3
[2023-10-15] MEDS: KCL 10 MEQ IVPB 10 MEQ/100 ML INFUS.BAG IVPB SCH (19:55)
[2023-10-15 23:16] LABS: CHLORIDE 108 mmol/L (98-107); SODIUM 144 mmol/L (136-145)
[2023-10-15 23:17] LABS: CALCIUM 12.4 mg/dL (8.5-10.1); POTASSIUM 2.9 mmol/L (3.5-5.1)
[2023-10-15 23:18] LABS: ANION GAP 7 mmol/L (4-13); BLOOD UREA NITROGEN 17.8 mg/dL (7-18); CO2 29 mmol/L (21-32); GLUCOSE,RANDOM 115 mg/dL (74-106)
[2023-10-15 23:21] LABS: CREATININE 0.2 mg/dL (0.55-1.3)
[2023-10-16 02:21] LABS: EPI CELLS 7 /uL (0-25.1); HYALINE CASTS 1 /uL (0-3.1); PH,URINE 5.5 (5.0-8.0); URINE APPEARANCE CLEAR; URINE BACTERIA 31 /uL (0-1359); URINE BILIRUBIN NEGATIVE (NEGATIVE); URINE COLOR YELLOW; URINE GLUCOSE (UA) 3+ (NEGATIVE); URINE KETONE NEGATIVE (NEGATIVE); URINE LEUK ESTERASE NEGATIVE (NEGATIVE); URINE NITRITE NEGATIVE (NEGATIVE); URINE PROTEIN 1+ (NEGATIVE); URINE RBC 2462 /uL (0-23.9); URINE WBC 16 /uL (0-25.8)
[2023-10-16] MEDS: VANCOMYCIN/WATER FOR INJ (PEG) 1,000 MG/200 ML BAG IVPB SCH (06:26)
[2023-10-16 07:51] LABS: BASO % 0.4 % (0-2.0); EOS % 0.1 % (0-4.5); HEMATOCRIT 24.4 % (35.4-49); HEMOGLOBIN 7.9 GM/dL (11.7-16.9); LYMPH % 15.7 % (8-40); MCH 29.9 pg (25.7-33.7); MCHC 32.6 g/dl (32.0-35.9); MEAN CELL VOLUME 91.7 fl (80-96); MEAN PLT VOLUME 9.2 fl (7.5-11.1); MONO % 3.3 % (3.8-10.2); NEUT % 80.5 % (42.8-82.8); PLATELET COUNT 48 10^3/uL (134-434); RBC 2.66 M/mm3 (4.00-5.60); WHITE BLOOD COUNT 4.6 K/mm3 (4.0-10.0)
[2023-10-16 07:59] LABS: CHLORIDE 109 mmol/L (98-107); SODIUM 145 mmol/L (136-145)
[2023-10-16 08:09] LABS: ALBUMIN 1.7 g/dl (3.4-5.0); BLOOD UREA NITROGEN 19.8 mg/dL (7-18); CALCIUM 13.7 mg/dL (8.5-10.1); CO2 29 mmol/L (21-32); GLUCOSE,RANDOM 108 mg/dL (74-106)
[2023-10-16 08:12] LABS: CREATININE 0.2 mg/dL (0.55-1.3); SGOT/AST 66 U/L (15-37)
[2023-10-16 08:13] LABS: SGPT/ALT 16 U/L (13-61)
[2023-10-16 08:14] LABS: BILIRUBIN,TOTAL 1.5 mg/dL (0.2-1)
[2023-10-16 08:33] LABS: ALK PHOS 1326 U/L (45-117); ANION GAP 8 mmol/L (4-13); POTASSIUM 2.7 mmol/L (3.5-5.1)
[2023-10-16] MEDS: PIPERACILLIN/TAZOB 4.5 GM 4.5 GM in DEXTROSE 5%-WATER 100 ML IVPB SCH (09:53)
[2023-10-16] MEDS: KCL 10 MEQ IVPB 10 MEQ/100 ML INFUS.BAG IVPB SCH (11:00)
[2023-10-16] MEDS: INSULIN ASPART SLIDING SCALE (NOVOLOG) 1 VIAL SQ SCH (11:14)
[2023-10-16] MEDS: GABAPENTIN 300 MG CAPSULE PO SCH ×2 (13:22→14:48)
[2023-10-16] MEDS: TAMSULOSIN HCL 0.4 MG CAP PO SCH (22:20)
[2023-10-16] MEDS: ATORVASTATIN CA 20 MG TABLET (FP) PO SCH (22:21)
[2023-10-17] MEDS: PIPERACILLIN/TAZOB 3.375 GM 3.375 GM in DEXTROSE 5%-WATER - 50 ML IVPB SCH (01:20)
[2023-10-17] MEDS: VANCOMYCIN/WATER FOR INJ (PEG) 1,000 MG/200 ML BAG IVPB SCH (06:31)
[2023-10-17 08:03] LABS: HEMATOCRIT 20.9 % (35.4-49); MCHC 32.8 g/dl (32.0-35.9); MEAN CELL VOLUME 91.4 fl (80-96); PLATELET COUNT 49 10^3/uL (134-434); RBC 2.29 M/mm3 (4.00-5.60); RDW 26.1 % (11.9-15.9); WHITE BLOOD COUNT 5.1 K/mm3 (4.0-10.0)
[2023-10-17 08:17] LABS: CHLORIDE 108 mmol/L (98-107); SODIUM 143 mmol/L (136-145)
[2023-10-17 08:22] LABS: POTASSIUM 2.7 mmol/L (3.5-5.1)
[2023-10-17 08:24] LABS: ALBUMIN 1.6 g/dl (3.4-5.0); ANION GAP 5 mmol/L (4-13); BLOOD UREA NITROGEN 20.7 mg/dL (7-18); CO2 30 mmol/L (21-32); GLUCOSE,RANDOM 85 mg/dL (74-106)
[2023-10-17 08:25] LABS: SGPT/ALT 14 U/L (13-61)
[2023-10-17 08:26] LABS: BILIRUBIN,TOTAL 1.1 mg/dL (0.2-1); TOT PROT 4.5 g/dl (6.4-8.2)
[2023-10-17 08:27] LABS: CREATININE 0.2 mg/dL (0.55-1.3); SGOT/AST 71 U/L (15-37)
[2023-10-17 08:38] LABS: CALCIUM 14.8 mg/dL (8.5-10.1)
[2023-10-17 08:41] LABS: HEMOGLOBIN 6.9 GM/dL (11.7-16.9)
[2023-10-17 08:46] LABS: ALK PHOS 1194 U/L (45-117)
[2023-10-17 09:40] LABS: ANISOCYTOSIS 0; MACROCYTOSIS 0; OVALOCYTE 1+
[2023-10-17] MEDS ORDERED: oxyCODONE HCL 5 MG TABLET PO PRN (10:52)
[2023-10-17] MEDS: KCL 10 MEQ IVPB 10 MEQ/100 ML INFUS.BAG IVPB SCH (11:11)
[2023-10-17] MEDS: ENOXAPARIN NA (PORCINE) 40 MG/0.4 ML DISP.SYRIN SQ SCH (11:19)
[2023-10-17] MEDS: PIPERACILLIN/TAZOB 4.5 GM 4.5 GM in DEXTROSE 5%-WATER 100 ML IVPB SCH (11:20)
[2023-10-17] MEDS: VANCOMYCIN 1,000 MG in DEXTROSE 5%-WATER - 250 ML IVPB SCH (11:20)
[2023-10-17] MEDS: D5-1/2NS+30 MEQ KCL - 30 MEQ/1,000 ML INFUS.BAG IV SCH (11:53)
[2023-10-17] MEDS: D5-LR+20 MEQ KCL - 20 MEQ/1,000 ML INFUS.BAG IV SCH (14:05)
[2023-10-17] MEDS: CALCITONIN - SALMON SYNTHETIC 400 UNIT/2 ML VIAL IM SCH (14:59)
[2023-10-17 15:10] LABS: MAGNESIUM 1.8 mg/dL (1.8-2.4)
[2023-10-17] MEDS: ERTAPENEM SODIUM 1 GM in SODIUM CHLORIDE 50 ML IVPB SCH (17:42)
[2023-10-18 07:20] LABS: CHLORIDE 115 mmol/L (98-107); SODIUM 149 mmol/L (136-145)
[2023-10-18 07:25] LABS: ALBUMIN 1.3 g/dl (3.4-5.0); CALCIUM 12.8 mg/dL (8.5-10.1)
[2023-10-18 07:26] LABS: BLOOD UREA NITROGEN 18.3 mg/dL (7-18); CO2 30 mmol/L (21-32); GLUCOSE,RANDOM 106 mg/dL (74-106)
[2023-10-18 07:28] LABS: SGPT/ALT 13 U/L (13-61)
[2023-10-18 07:29] LABS: CREATININE 0.2 mg/dL (0.55-1.3); SGOT/AST 70 U/L (15-37)
[2023-10-18 07:30] LABS: BILIRUBIN,TOTAL 0.9 mg/dL (0.2-1); TOT PROT 3.8 g/dl (6.4-8.2)
[2023-10-18 08:33] LABS: ALK PHOS 996 U/L (45-117); ANION GAP 5 mmol/L (4-13); POTASSIUM 2.9 mmol/L (3.5-5.1)
[2023-10-18] MEDS: KCL 10 MEQ IVPB 10 MEQ/100 ML INFUS.BAG IVPB SCH (11:44)
[2023-10-18 12:17] LABS: CHLORIDE 113 mmol/L (98-107); SODIUM 148 mmol/L (136-145)
[2023-10-18 12:19] LABS: ANION GAP 4 mmol/L (4-13); BLOOD UREA NITROGEN 17.8 mg/dL (7-18); CALCIUM 14.5 mg/dL (8.5-10.1); CO2 32 mmol/L (21-32); GLUCOSE,RANDOM 105 mg/dL (74-106); POTASSIUM 2.5 mmol/L (3.5-5.1)
[2023-10-18 12:22] LABS: ALBUMIN 1.7 g/dl (3.4-5.0); CREATININE 0.2 mg/dL (0.55-1.3); SGOT/AST 84 U/L (15-37); SGPT/ALT 17 U/L (13-61)
[2023-10-18 12:24] LABS: BILIRUBIN,TOTAL 1.1 mg/dL (0.2-1); TOT PROT 4.6 g/dl (6.4-8.2)
[2023-10-18 12:44] LABS: ALK PHOS 1364 U/L (45-117)
[2023-10-18] MEDS: POTASSIUM CHLORIDE ORAL LIQUID 20 MEQ/15 ML PO ONE ×2 (14:01→22:35)
[2023-10-18] MEDS: POTASSIUM CHLORIDE TABS 20 MEQ TABLET.ER (FP) PO SCH (14:12)
[2023-10-18] MEDS: D5-NS + 20 MEQ KCL - 20 MEQ/1,000 ML INFUS.BAG IV SCH (14:20)
[2023-10-18] MEDS: ZOLEDRONIC ACID 4 MG in SODIUM CHLORIDE 100 ML IVPB ONE ×2 (14:55→16:27)
[2023-10-18 15:03] LABS: HEMATOCRIT 29.7 % (35.4-49); HEMOGLOBIN 9.9 GM/dL (11.7-16.9); MCH 29.3 pg (25.7-33.7); MCHC 33.2 g/dl (32.0-35.9); MEAN CELL VOLUME 88.3 fl (80-96); MEAN PLT VOLUME 8.4 fl (7.5-11.1); PLATELET COUNT 50 10^3/uL (134-434); RBC 3.36 M/mm3 (4.00-5.60); RDW 21.7 % (11.9-15.9); WHITE BLOOD COUNT 7.4 K/mm3 (4.0-10.0)
[2023-10-18 15:31] LABS: ANISOCYTOSIS 2+; MACROCYTOSIS 1+
[2023-10-18] MEDS: ACETAMINOPHEN 1000 MG/100 ML BAG IVPB PRN (17:38)
[2023-10-19 06:55] LABS: POTASSIUM 3.3 mmol/L (3.5-5.1)
[2023-10-19 07:01] LABS: CALCIUM 13.2 mg/dL (8.5-10.1)
[2023-10-19 07:02] LABS: ALBUMIN 1.5 g/dl (3.4-5.0); BLOOD UREA NITROGEN 14.9 mg/dL (7-18); MAGNESIUM 1.5 mg/dL (1.8-2.4)
[2023-10-19 07:05] LABS: CREATININE 0.2 mg/dL (0.55-1.3)
[2023-10-19 07:07] LABS: TOT PROT 4.5 g/dl (6.4-8.2)
[2023-10-19] MEDS: KCL 10 MEQ IVPB 10 MEQ/100 ML INFUS.BAG IVPB SCH (11:09)
[2023-10-19] MEDS: MAGNESIUM 2GM/50ML STERILE WATER IVPB IVPB ONE (11:09)
[2023-10-19] MEDS: D5-1/2NS+20 MEQ KCL - 20 MEQ/1,000 ML INFUS.BAG IV SCH (12:41)
[2023-10-19 13:07] LABS: HEMOGLOBIN 9.1 GM/dL (11.7-16.9); MCH 29.6 pg (25.7-33.7); MCHC 32.6 g/dl (32.0-35.9); MEAN CELL VOLUME 90.8 fl (80-96); MEAN PLT VOLUME 9.2 fl (7.5-11.1); PLATELET COUNT 47 10^3/uL (134-434); RBC 3.08 M/mm3 (4.00-5.60); RDW 20.9 % (11.9-15.9)
[2023-10-19 13:44] LABS: ANISOCYTOSIS 2+; MACROCYTOSIS 1+
[2023-10-19 13:47] LABS: PLATELET ESTIMATE DECREASED
[2023-10-20 07:03] LABS: CHLORIDE 124 mmol/L (98-107); SODIUM 158 mmol/L (136-145)
[2023-10-20 07:08] LABS: CALCIUM 11.3 mg/dL (8.5-10.1)
[2023-10-20 07:09] LABS: ALBUMIN 1.4 g/dl (3.4-5.0); CO2 30 mmol/L (21-32); GLUCOSE,RANDOM 108 mg/dL (74-106); MAGNESIUM 1.6 mg/dL (1.8-2.4)
[2023-10-20 07:12] LABS: CREATININE 0.2 mg/dL (0.55-1.3); PHOSPHOROUS 1.3 mg/dL (2.5-4.9); SGOT/AST 56 U/L (15-37); SGPT/ALT 14 U/L (13-61)
[2023-10-20 07:15] LABS: BILIRUBIN,TOTAL 0.9 mg/dL (0.2-1); TOT PROT 4.2 g/dl (6.4-8.2)
[2023-10-20 07:25] LABS: ANION GAP 4 mmol/L (4-13); POTASSIUM 2.3 mmol/L (3.5-5.1)
[2023-10-20 07:29] LABS: ALK PHOS 1068 U/L (45-117)
[2023-10-20] MEDS: KCL 10 MEQ IVPB 10 MEQ/100 ML INFUS.BAG IVPB SCH (10:56)
[2023-10-20] MEDS: SCOPOLAMINE HYDROBROMIDE 1 PATCH PATCH.TD72 TD SCH (11:05)
[2023-10-20] MEDS: MAGNESIUM 2GM/50ML STERILE WATER IVPB IVPB ONE (11:31)
[2023-10-20] MEDS ORDERED: DEXTROSE 5%-WATER - 1,000 ML with POTASSIUM CHLORIDE 20 MEQ IV SCH (12:00)
[2023-10-20] MEDS ORDERED: POTASSIUM CHLORIDE 20 MEQ in DEXTROSE 5%-WATER - 1,000 ML IV SCH (12:00)
[2023-10-20] MEDS: POTASSIUM CHLORIDE 20 MEQ in DEXTROSE 5%-WATER - 1,000 ML IV SCH (13:52)
[2023-10-20] MEDS: POTASSIUM PHOSPHATE 15 MM in DEXTROSE 5%-WATER - 250 ML IVPB ONE (13:53)
[2023-10-20] MEDS: MORPHINE SULFATE/0.9% NACL/PF 100 MG/100 ML BAG IVPB SCH (19:52)
[2023-10-20] MEDS ORDERED: POTASSIUM CHLORIDE ORAL LIQUID 20 MEQ/15 ML PO SCH (22:00)
[2023-10-22 21:41] VITALS: BP 73/48; PULSE 98; RESP 14; TEMP 98.1
== END 2023-10-23 03:25 | disposition expired | DRG 720 ==
LOC: JER 16:30 → JERBED 20:59 → J4W 10-16 04:02 → J4S 10-17 17:10
PROVIDERS: ADMIT Internal Medicine; ATTEND Family Medicine
PROC: 30233N1 Transfusion of Nonautologous Red Blood Cells into Peripheral Vein, Percutaneous Approach (ICD-10-PCS; principal; 2023-10-17)
DX: A41.9 Sepsis, unspecified organism (principal); J69.0 Pneumonitis due to inhalation of food and vomit; J96.90 Respiratory failure, unspecified, unspecified whether with hypoxia or hypercapnia; L89.154 Pressure ulcer of sacral region, stage 4; H49.20 Sixth [abducent] nerve palsy, unspecified eye; C78.7 Secondary malignant neoplasm of liver and intrahepatic bile duct; C79.51 Secondary malignant neoplasm of bone; E83.52 Hypercalcemia; G82.20 Paraplegia, unspecified; C61 Malignant neoplasm of prostate; D63.0 Anemia in neoplastic disease; E87.6 Hypokalemia; Z16.12 Extended spectrum beta lactamase (ESBL) resistance; R64 Cachexia; Z68.22 Body mass index [BMI] 22.0-22.9, adult
CPT/HCPCS: 0241U-QW; 36415; 36430; 71045-TC-FY; 80048; 80053; 81003; 82803; 82962; 83605; 83735; 84100; 84153; 84484; 85025; 85610; 85730; 86850; 86900; 86901; 86922; 87040; 87070; 87086; 87186; 87205; 93005; 93010; 99291; E0186; J0131; J3489; P9038; P9058